=== PATIENT | female | born 2000 | race Caucasian/White ===

== ENCOUNTER 2020-01-29 09:29 | Outpatient (REF) | payer OTHER, SELFPAY ==
[2020-01-29 16:04] LABS: CT PCR NOT DETECTED (Not Detect.); NG PCR NOT DETECTED (Not Detect.)
== END 2020-01-29 09:30 | disposition home or self-care (01) ==
LOC: HO.LNP 09:29
PROVIDERS: PCP Pediatrics; Visit Provider Advanced Practice Midwife
DX: Z11.3 Encounter for screening for infections with a predominantly sexual mode of transmission (principal); Z20.2 Contact with and (suspected) exposure to infections with a predominantly sexual mode of transmission
CPT/HCPCS: 87491; 87591; 99213

== ENCOUNTER → 2020-03-03 13:53 | Outpatient (BNVA) | payer OTHER, SELFPAY | PROVIDERS: PCP Pediatrics; Visit Provider Advanced Practice Midwife | DX: Z30.42 Encounter for surveillance of injectable contraceptive (principal) | CPT/HCPCS: 96372; 99211; J1050 ==

== ENCOUNTER → 2020-06-05 08:48 | Outpatient (BNVA) | payer OTHER, SELFPAY | PROVIDERS: Visit Provider Advanced Practice Midwife | DX: Z30.42 Encounter for surveillance of injectable contraceptive (principal) | CPT/HCPCS: 96372; 99211 ==

== ENCOUNTER 2020-06-26 12:21 | Emergency (ER) | payer OTHER, SELFPAY ==
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
[2020-06-26 12:27] VITALS: BP 127/72; PULSE 86; RESP 18; TEMP 36.8; O2SAT 98; BMI 21.9
[2020-06-26] MEDS: Tetracaine HCl/PF 0.5% Oph Sol 4 ML DROPS 2 DROP EYE-LEFT (12:55)
[2020-06-26] MEDS: Fluorescein Sodium STRIP 1 STRIP EYE-LEFT (12:55)
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
[2020-06-26] MEDS: Erythromycin Base 0.5% Oph Oin 1 GM TUBE 1 CM EYE-LEFT (13:20)
[2020-06-26 13:23] LABS: Urine Pregnancy NEGATIVE (NEGATIVE)
[2020-06-26 13:24] LABS: UPreg QC Valid YES
== END 2020-06-26 14:33 | disposition home or self-care (01) ==
PROVIDERS: Physician Assistant; Emergency Provider Emergency Medicine Emergency Medical Services
DX: H21.02 Hyphema, left eye (principal); S05.02XA Injury of conjunctiva and corneal abrasion without foreign body, left eye, initial encounter; Y04.2XXA Assault by strike against or bumped into by another person, initial encounter; Y93.9 Activity, unspecified; Y92.9 Unspecified place or not applicable; Y99.9 Unspecified external cause status; F12.90 Cannabis use, unspecified, uncomplicated
CPT/HCPCS: 70486; 81025; 99284

== ENCOUNTER → 2020-08-28 10:51 | Outpatient (BNVA) | payer OTHER, SELFPAY | PROVIDERS: Visit Provider Advanced Practice Midwife | DX: Z30.42 Encounter for surveillance of injectable contraceptive (principal) | CPT/HCPCS: 96372; 99211; J1050 ==

== ENCOUNTER 2020-09-16 10:25 | Outpatient (REF) | payer OTHER, SELFPAY ==
[2020-09-16 12:37] LABS: Syphilis Screen Nonreactive (Nonreactive)
[2020-09-16 12:40] LABS: HIV AB/AG Nonreactive (Nonreactive); HIV Num 1 0.06 S/CO (0.00-0.99); ~HepC Num1 0.11 S/CO (0.00-0.79); ~Hepatitis C Antibody Nonreactive (Nonreactive)
[2020-09-16 13:10] LABS: HBsAGNum1 0.21 S/CO (0.00-0.99); Hepatitis B Surface Antigen Negative (Negative)
[2020-09-16 14:06] LABS: CT PCR DETECTED (Not Detect.); NG PCR NOT DETECTED (Not Detect.)
[2020-09-17 08:38] LABS: BV Int Neg Control Negative (Negative); BV Int Pos Control Positive (Positive)
== END 2020-09-16 10:26 | disposition home or self-care (01) ==
LOC: HO.LAB 10:25
PROVIDERS: Visit Provider Obstetrics & Gynecology
DX: A60.00 Herpesviral infection of urogenital system, unspecified (principal)
CPT/HCPCS: 36415; 86780; 86803; 87255; 87340; 87389; 87480; 87491; 87510; 87591; 87660; 99212

== ENCOUNTER 2020-09-30 10:20 | Outpatient (REF) | payer OTHER, SELFPAY ==
[2020-10-01 05:36] LABS: CT PCR NOT DETECTED (Not Detect.); NG PCR NOT DETECTED (Not Detect.)
== END 2020-09-30 10:21 | disposition home or self-care (01) ==
LOC: HO.LAB 10:20
PROVIDERS: Visit Provider Obstetrics & Gynecology
DX: Z11.3 Encounter for screening for infections with a predominantly sexual mode of transmission (principal); A60.00 Herpesviral infection of urogenital system, unspecified; Z20.2 Contact with and (suspected) exposure to infections with a predominantly sexual mode of transmission
CPT/HCPCS: 87491; 87591; 99212

== ENCOUNTER 2020-11-27 13:31 | Outpatient (REF) | payer OTHER, SELFPAY ==
[2020-11-28 13:10] LABS: CT PCR NOT DETECTED (Not Detect.); NG PCR NOT DETECTED (Not Detect.)
== END 2020-11-27 13:32 | disposition home or self-care (01) ==
LOC: HO.LAB 13:31
PROVIDERS: Visit Provider Advanced Practice Midwife
DX: Z01.419 Encounter for gynecological examination (general) (routine) without abnormal findings (principal); M62.89 Other specified disorders of muscle; K62.89 Other specified diseases of anus and rectum; Z20.2 Contact with and (suspected) exposure to infections with a predominantly sexual mode of transmission; Z30.42 Encounter for surveillance of injectable contraceptive; Z79.899 Other long term (current) drug therapy
CPT/HCPCS: 87491; 87591; 88142; 96372

== ENCOUNTER → 2021-02-19 11:00 | Outpatient (BNVA) | payer OTHER, SELFPAY | PROVIDERS: Visit Provider Advanced Practice Midwife | DX: Z30.42 Encounter for surveillance of injectable contraceptive (principal) | CPT/HCPCS: 96372; 99211 ==

== ENCOUNTER 2021-04-25 12:20 | Emergency (ER) | payer OTHER, SELFPAY ==
--- NOTE | ~2021-04-25 | XR_ITS ---
EXAMINATION: XR FINGER, LEFT CLINICAL INFORMATION: Swelling and pain of the left hand/thumb. COMPARISON: None TECHNIQUE: Three views of the left thumb. FINDINGS: Visualized portion of the distal radius and ulna demonstrate no fracture. Carpal rows are well aligned without carpal bone fracture. No metacarpal or phalangeal fracture. Specifically, there is no fracture of the thumb. There is no soft tissue swelling radiopaque foreign body of the thumb. XR/XR finger LT min 2V IMPRESSION: Unremarkable radiographs of the left thumb.
[2021-04-25 12:48] VITALS: BP 140/85; PULSE 74; RESP 18; TEMP 36.1; O2SAT 98; BMI 24.7
[2021-04-25] MEDS: Lidocaine HCl 2 % MPF 5 ML VIAL SUBCUT (13:34)
[2021-04-25] MEDS: Lidocaine 4 % Cream KIT 1 APPL TOPICAL (13:34)
[2021-04-25] MEDS: cephALEXin 500 MG CAPSULE PO (13:34)
[2021-04-25] MEDS: oxyCODONE HCl Immed Release 5 MG TABLET PO (13:35)
[2021-04-25] MEDS: Ibuprofen 800 MG TABLET PO (13:35)
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
[2021-04-25] MEDS: LORazepam 1 MG TABLET PO (14:56)
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
== END 2021-04-25 15:12 | disposition home or self-care (01) ==
PROVIDERS: Emergency Provider Internal Medicine
DX: L02.512 Cutaneous abscess of left hand (principal); F12.90 Cannabis use, unspecified, uncomplicated; Z79.899 Other long term (current) drug therapy
CPT/HCPCS: 10060; 73140; 99284

== ENCOUNTER → 2021-04-28 11:05 | Outpatient (BNVA) | payer OTHER, SELFPAY | PROVIDERS: Visit Provider Orthopaedic Surgery | DX: L03.012 Cellulitis of left finger (principal); Z98.890 Other specified postprocedural states | CPT/HCPCS: 99202 ==

== ENCOUNTER 2021-04-29 14:26 | Outpatient (REF) | payer OTHER, SELFPAY ==
[2021-04-29 16:01] LABS: Binax Internal Control QC Valid; Binax Now Covid-19 Ag Negative (Negative)
== END 2021-04-29 14:27 | disposition home or self-care (01) ==
LOC: HO.LAB 14:26
PROVIDERS: Visit Provider Internal Medicine
DX: Z20.822 Contact with and (suspected) exposure to COVID-19 (principal)
CPT/HCPCS: C9803

== ENCOUNTER → 2021-05-11 12:45 | Outpatient (BNVA) | payer OTHER, SELFPAY | PROVIDERS: Visit Provider Advanced Practice Midwife | DX: Z30.42 Encounter for surveillance of injectable contraceptive (principal) | CPT/HCPCS: 96372; 99211 ==

== ENCOUNTER → 2021-07-28 09:51 | Outpatient (BNVA) | payer OTHER, SELFPAY | PROVIDERS: Visit Provider Advanced Practice Midwife | DX: Z30.42 Encounter for surveillance of injectable contraceptive (principal) | CPT/HCPCS: 96372; 99211 ==

== ENCOUNTER 2021-09-15 02:15 | Emergency (ER) | payer OTHER, SELFPAY ==
[2021-09-15 02:21] VITALS: BP 145/83; PULSE 140; RESP 20; TEMP 37; O2SAT 98; BMI 24.7
--- NOTE | 2021-09-15 02:25 | ECG_ITS ---
Test Reason : CP,ETOH Blood Pressure : / mmHG Vent. Rate : 154 BPM Atrial Rate : 154 BPM P-R Int : 104 ms QRS Dur : 066 ms QT Int : 324 ms P-R-T Axes : 000 070 059 degrees QTc Int : 518 ms Sinus tachycardia with short NC Nonspecific ST abnormality Abnormal ECG No previous ECGs available Referred By: Generic ED Physician Electronically Signed By:MING CRYSTAL MD
--- NOTE | 2021-09-15 02:25 | PC.NURSE ---
Pt sister Latoya [phone]. Call when pt needs ride home.
[2021-09-15 02:33] LABS: Hematocrit 38.2 % (37.0-47.0); Hemoglobin 13.2 g/dl (12.0-16.0); Mean Corpuscular HGB Conc 34.6 g/dl (31.0-35.0); Mean Corpuscular Hemoglobin 30.3 pg (27.0-33.0); Mean Corpuscular Volume 87.6 fL (80.0-98.0); Platelet Count 314 X10*3/uL (160-400); Red Blood Count 4.36 X10*6/uL (4.20-5.50); Red Cell Distribution Width 12.5 % (11.0-16.0); White Blood Count 10.4 X10*3/uL (4.8-10.8)
[2021-09-15 02:51] LABS: Ethanol 106 mg/dL
[2021-09-15 02:55] LABS: Alanine Aminotransferase 19 U/L (0-31); Albumin Level 4.7 g/dL (3.5-5.0); Alkaline Phosphatase 87 U/L (39-117); Anion Gap 14 (12-20); Aspartate Amino Transferase 17 U/L (5-31); Bilirubin Total < 0.2 mg/dL (0.0-1.0); Blood Urea Nitrogen 12 mg/dL (9-16); Calcium 9.9 mg/dL (8.4-10.2); Carbon Dioxide 22 mmol/L (22-29); Chloride 107 mmol/L (96-108); Estimated Glomerular Filt Rate > 60; Glucose Random 114 mg/dL (60-115); Potassium 3.2 mmol/L (3.3-5.1); Sodium 140 mmol/L (135-145); Total Protein 8.4 g/dL (6.5-8.0)
[2021-09-15 03:00] LABS: Troponin-I High Sensitivity < 3.5 ng/L (<3.5-17.0)
--- NOTE | 2021-09-15 07:31 | ED.GENADULT ---
HPI - General Adult General Chief complaint: Anxiety Stated complaint: possible ETOH Time Seen by Provider: 09/15/21 07:31 Source: patient Mode of arrival: ambulatory Limitations: no limitations History of Present Illness HPI narrative: patient was feeling pressure in her chest last night. Patient had had this before. Patient states that she has anxiety, and is not sure why. Patient denies suicidal ideation, states that she is in a safe place, no one is hurting her. Patient denies . Patient now stating that her friends brother and she was stressed at the . Onset (ago): week(s) Location: chest Severity: mild Quality: aching Pain Consistency: intermittent Relieving factors: none Exacerbating factors: none Related Data Previous Rx's Medication Instructions Recorded erythromycin 5 mg/gram (0.5 %) eye 0.5 inch OPHTHALMIC (EYE) QID #3.5 06/26/20 ointment g azithromycin 500 mg tablet 1,000 mg PO ONCE #2 tab 09/16/20 valacyclovir 1 gram tablet 1,000 mg PO BID 10 Days #20 tab 09/16/20 metronidazole 500 mg tablet 500 mg PO BID 7 Days #14 tab 09/17/20 (Flagyl) medroxyprogesterone 150 mg/mL 150 mg IM Q12W 84 Days #1 ml 11/27/20 intramuscular syringe cephalexin 500 mg capsule 500 mg PO Q6H 10 Days #40 cap 04/25/21 doxycycline monohydrate 100 mg 100 mg PO BID 10 Days #20 cap 04/25/21 capsule ibuprofen 800 mg tablet 800 mg PO Q8H PRN #14 tab 04/25/21 oxycodone 5 mg tablet 5 mg PO Q6H PRN #14 tab 04/25/21 Allergies Allergy/AdvReac Type Severity Reaction Status Date / Time No Known Allergies Allergy Verified 04/28/21 11:25 [No Known Allergies*] Review of Systems Constitutional: Constitutional: Reports no additional constitutional complaints Eyes: Eyes: Reports no additional eye complaints ENT: Denies dizziness Cardiovascular: Cardiovascular: Reports no additional cardiovascular complaints Respiratory: Respiratory: Reports as per HPI Gastrointestinal: Gastrointestinal: Reports no additional gastrointestinal complaints Genitourinary: Genitourinary: Reports no additional female genitourinary complaints Musculoskeletal: Musculoskeletal: Reports no additional musculoskeletal complaints Integumentary/Breasts: Skin/Breast: Denies rash Neurologic: Reports system reviewed and no additional complaints, except as documented, Denies dizziness and Denies Sensory deficit (Neuro) Psychiatric: Psychiatric: Denies anxiety [facility] Past Medical History Medical History Chlamydia contact, treated Family History Family History Mother HTN (hypertension) Father Diabetes Sister HTN (hypertension) Maternal Aunt Breast cancer Social History Social History (Updated 04/28/21 @ 11:25 by JAYDEN Lombardo) Alcohol intake: current Alcohol intake frequency: holidays/special occasions only Patient Tobacco Use Status: Never used Tobacco Use of substances other than those prescribed or required for medical reasons: No Substance Use Type: Marijuana Advance Directives: No Advance Directives Information Provided: No Patient : No 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al status: unemployed 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: left 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 Physical Exam ED Vital Signs: Vital Signs - 24 hr 09/15/21 02:21 09/15/21 07:50 Temperature 98.6 F 98.3 F Pulse Rate 140 H 80 Respiratory Rate 20 16 Blood Pressure 145/83 H 141/77 H Pulse Oximetry 98 99 BMI result Body Mass Index 24.7 Const Other: slightly anxious General: healthy appearing Nutritional Appearance: average body habitus Orientation/consciousness: oriented to person and patient oriented x3 Limitations: no limitations HENMT Head: Yes normal to inspection Ears: external ears normal General nose exam: Normal external nose present Mouth: Normal oral and palatal mucosa present and oropharynx normal Throat: Yes posterior oropharynx normal Eyes General: appearance normal, both eyes and all related structures Neck Neck: Yes normal visual inspection Chest Chest palpation & inspection: normal inspection of the chest Resp Auscultation: clear to auscultation bilaterally Cardio Jugular venous distension: no JVD Rate: regular rate Rhythm: regular rhythm Heart sounds: S1 normal heart sound present and S2 normal heart sound present GI Inspection: Yes normal to inspection Palpation (GI): Soft to palpation, nontender and No hepatosplenomegaly present Auscultation: normal bowel sounds General: Yes no CVA tenderness Back/Spine/Pelvis Back: no CVA tenderness Skin General skin exam: no rashes or lesions noted Neuro General: oriented to person and patient oriented x3 Cranial nerves: Yes CN's II-XII intact bilaterally Motor exam (neuro): 5/5 motor strength present throughout Sensory Exam: No Sensory deficit (Neuro) Extrem General: Yes normal to inspection Psych Appearance: grossly normal Course Reevaluation(s) Reevaluation #1: EKG #[address] twave changes Time: 09:32 Reevaluation #2: patient under stress from friends brothers . She presented intoxicated, and smoked marijuana, she is resting comfortably now Time: 09:36 Medical Decision Making Lab Data Result diagrams: 09/15/21 02:27 09/15/21 02:27 Labs: Lab Results 09/15/21 09/15/21 09/15/21 Range/Units 02:27 02:27 02:27 WBC 10.4 (4.8-10.8) X10*3/uL RBC 4.36 (4.20-5.50) X10*6/uL Hgb 13.2 (12.0-16.0) g/dl Hct 38.2 (37.0-47.0) % MCV 87.6 (80.0-98.0) fL MCH 30.3 (27.0-33.0) pg MCHC 34.6 (31.0-35.0) g/dl RDW 12.5 (11.0-16.0) % Plt Count 314 (160-400) X10*3/uL MPV 11.0 (9.4-12.3) fL Absolute Nucleated RBC 0.000 (0.0-0.012) X10*3/uL Nucleated RBC % (auto) 0.0 (0.0-0.2) /100WBC Sodium 140 (135-145) mmol/L Potassium 3.2 L (3.3-5.1) mmol/L Chloride 107 (96-108) mmol/L Carbon Dioxide 22 (22-29) mmol/L Anion Gap 14 (12-20) BUN 12 (9-16) mg/dL Creatinine 0.92 (0.5-1.4) mg/dL Estim Creat Clear Calc 86.0 Estimated GFR > 60 Random Glucose 114 (60-115) mg/dL Calcium 9.9 (8.4-10.2) mg/dL Total Bilirubin < 0.2 (0.0-1.0) mg/dL AST 17 (5-31) U/L ALT 19 (0-31) U/L Alkaline Phosphatase 87 (39-117) U/L Troponin I High Sens (<3.5-17.0) ng/L Total Protein 8.4 H (6.5-8.0) g/dL Albumin 4.7 (3.5-5.0) g/dL Urine Color Urine Appearance Urine pH (5.0-8.0) Ur Specific [place] (1.005-1.025) Urine Protein (NEG-TRACE) MG/DL Urine Glucose (UA) (NEG) MG/DL Urine Ketones (NEG) MG/DL Urine Blood (NEG) Urine Nitrite (NEG) Ur Leukocyte Esterase (NEG) Urine RBC (0) /HPF Urine WBC (0-4) /HPF Ur Squamous Epith Cells /LPF Urine Bacteria /LPF Urine Opiates Screen (Not Detect) Urine Fentanyl Screen (Not Detect) Ur Barbiturates Screen (Not Detect) Ur Phencyclidine Scrn (Not Detect) Ur Amphetamines Screen (Not Detect) U Benzodiazepines Scrn (Not Detect) Urine Cocaine Screen (Not Detect) U Marijuana (THC) Screen (Not Detect) Ethyl Alcohol 106 mg/dL 09/15/21 09/15/21 09/15/21 Range/Units 02:27 08:05 08:05 WBC (4.8-10.8) X10*3/uL RBC (4.20-5.50) X10*6/uL Hgb (12.0-16.0) g/dl Hct (37.0-47.0) % MCV (80.0-98.0) fL MCH (27.0-33.0) pg MCHC (31.0-35.0) g/dl RDW (11.0-16.0) % Plt Count (160-400) X10*3/uL MPV (9.4-12.3) fL Absolute Nucleated RBC (0.0-0.012) X10*3/uL Nucleated RBC % (auto) (0.0-0.2) /100WBC Sodium (135-145) mmol/L Potassium (3.3-5.1) mmol/L Chloride (96-108) mmol/L Carbon Dioxide (22-29) mmol/L Anion Gap (12-20) BUN (9-16) mg/dL Creatinine (0.5-1.4) mg/dL Estim Creat Clear Calc Estimated GFR Random Glucose (60-115) mg/dL Calcium (8.4-10.2) mg/dL Total Bilirubin (0.0-1.0) mg/dL AST (5-31) U/L ALT (0-31) U/L Alkaline Phosphatase (39-117) U/L Troponin I High Sens < 3.5 (<3.5-17.0) ng/L Total Protein (6.5-8.0) g/dL Albumin (3.5-5.0) g/dL Urine Color YELLOW Urine Appearance HAZY Urine pH 7.0 (5.0-8.0) Ur Specific [place] 1.015 (1.005-1.025) Urine Protein NEG (NEG-TRACE) MG/DL Urine Glucose (UA) NEG (NEG) MG/DL Urine Ketones NEG (NEG) MG/DL Urine Blood NEG (NEG) Urine Nitrite NEG (NEG) Ur Leukocyte Esterase TRACE H (NEG) Urine RBC 0 (0) /HPF Urine WBC 5-9 H (0-4) /HPF Ur Squamous Epith Cells 2+ /LPF Urine Bacteria NONE /LPF Urine Opiates Screen Not Detected (Not Detect) Urine Fentanyl Screen Not Detected (Not Detect) Ur Barbiturates Screen Not Detected (Not Detect) Ur Phencyclidine Scrn Not Detected (Not Detect) Ur Amphetamines Screen Not Detected (Not Detect) U Benzodiazepines Scrn Not Detected (Not Detect) Urine Cocaine Screen Not Detected (Not Detect) U Marijuana (THC) Screen POSITIVE H (Not Detect) Ethyl Alcohol mg/dL ECG Data Attestation: I personally reviewed and interpreted this ECG as follows: Interpretation: sinus tachycardia rate of 153, no st or twave changes Discharge Plan Discharge Clinical Impression: Acute anxiety, Alcohol intoxication Patient Disposition: Home, Self-Care Instructions: Alcohol Intoxication (ED), Anxiety (ED) Prescriptions: No Action azithromycin 500 mg tablet 1,000 mg PO ONCE Qty: 2 0RF metronidazole [Flagyl] 500 mg tablet 500 mg PO BID 7 Days Qty: 14 0RF Rx Instructions: Take with food, Avoid alcohol and vinegar products erythromycin 5 mg/gram (0.5 %) ointment 0.5 inch ophthalmic (eye) QID Qty: 3.5 0RF Rx Instructions: apply to inner left lower eyelid cephalexin 500 mg capsule 500 mg PO Q6H 10 Days Qty: 40 0RF doxycycline monohydrate 100 mg capsule 100 mg PO BID 10 Days Qty: 20 0RF ibuprofen 800 mg tablet 800 mg PO Q8H PRN (Reason: pain) Qty: 14 0RF oxycodone 5 mg tablet 5 mg PO Q6H PRN (Reason: pain) Qty: 14 0RF valacyclovir 1 gram tablet 1,000 mg PO BID 10 Days Qty: 20 0RF medroxyprogesterone [Depo-Provera] 150 mg/mL syringe 150 mg IM ONCE Qty: 1 0RF medroxyprogesterone 150 mg/mL syringe 150 mg IM Q12W 84 Days Qty: 1 3RF Referrals: Physician,Unknown J [Primary Care Provider] - 1 week
--- NOTE | 2021-09-15 07:36 | ECG_ITS ---
Test Reason : ANXIETY Blood Pressure : / mmHG Vent. Rate : 070 BPM Atrial Rate : 070 BPM P-R Int : 152 ms QRS Dur : 088 ms QT Int : 384 ms P-R-T Axes : 027 073 029 degrees QTc Int : 414 ms Normal sinus rhythm Normal ECG When compared with ECG of 15-SEP-2021 02:15, Vent. rate has decreased BY [address] no longer depressed in Inferior leads Non-specific change in ST segment in Anterior leads Referred By: Lan Pierce Electronically Signed By:MING CRYSTAL MD
[2021-09-15 07:50] VITALS: BP 141/77; PULSE 80; RESP 16; TEMP 36.8; O2SAT 99
[2021-09-15 08:25] LABS: Appearance Urine HAZY; Color Urine YELLOW; Glucose Urine UA NEG (NEG); Leukocyte Esterase Urine TRACE (NEG); Nitrite Urine NEG (NEG); Specific Gravity - Urine 1.015 (1.005-1.025); Urine Blood NEG (NEG); Urine Ketones NEG (NEG); Urine Protein NEG (NEG-TRACE)
[2021-09-15 08:27] LABS: RBC Urine 0 /HPF (0); Squamous Epithelial Cell Urine 2+ /LPF
[2021-09-15 08:43] LABS: Amphetamine Screen Urine Not Detected (Not Detect); Barbiturates, Urine Not Detected (Not Detect); Benzodiazepines Screen Urine Not Detected (Not Detect); Cannabinoid Screen Urine POSITIVE (Not Detect); Cocaine Screen Urine Not Detected (Not Detect); Fentanyl, urine Not Detected (Not Detect); Opiate Screen Urine Not Detected (Not Detect); Phencyclidine Screen Urine Not Detected (Not Detect)
[2021-09-15 10:01] VITALS: BP 138/70; PULSE 64; RESP 16; O2SAT 100
== END 2021-09-15 10:14 | disposition home or self-care (01) ==
PROVIDERS: Emergency Provider Emergency Medicine
DX: F41.9 Anxiety disorder, unspecified (principal); F10.129 Alcohol abuse with intoxication, unspecified; Y90.9 Presence of alcohol in blood, level not specified
CPT/HCPCS: 36415; 80053; 80307; 81001; 82077; 84484; 85027; 87086; 93005; 99284

== ENCOUNTER → 2021-10-21 10:37 | Outpatient (BNVA) | payer OTHER, SELFPAY | PROVIDERS: Visit Provider Advanced Practice Midwife | DX: Z30.42 Encounter for surveillance of injectable contraceptive (principal) | CPT/HCPCS: 96372; 99211 ==

== ENCOUNTER 2021-12-20 20:27 | Emergency (ER) | payer OTHER, SELFPAY ==
--- NOTE | ~2021-12-20 | CT_ITS ---
EXAMINATION: CT HEAD WITHOUT CONTRAST CLINICAL INFORMATION: Head trauma with headache and loss of consciousness COMPARISON: None TECHNIQUE: Imaging was performed from the skull base to vertex without intravenous administration of contrast. This CT examination was performed using dose optimization techniques as appropriate, variously including the following: *Automated exposure control *Adjustment of mA and/or kV according to patient size (this includes techniques or standardized protocols for targeted exams where dose is matched to indication/reason for exam; i.e. extremities or head) *Use of iterative reconstruction technique Total exam dose length product: 609 mGy-cm FINDINGS: No intra or extra-axial fluid collection, hemorrhage, or mass. No ventriculomegaly. No midline shift or herniation. Basal cisterns are patent. Humphreys-white matter differentiation is maintained. No territorial encephalomalacia. No significant volume loss. There is no abnormal attenuation within the brain parenchyma. No calvarial fracture or soft tissue abnormality. Mild mucosal thickening of left ethmoid air cells. Mastoid air cells normally aerated. CT/CT head/brain wo IV con IMPRESSION: 1. No acute intracranial pathology.
[2021-12-20 20:29] VITALS: BP 142/73; PULSE 71; RESP 18; TEMP 37.1; O2SAT 97; BMI 23.0
--- NOTE | 2021-12-20 20:41 | ED_ITS ---
HPI - Fall General Chief Complaint: Fall Stated Complaint: head pain, blurry vision Time Seen by Provider: 12/20/21 20:36 Source: patient Mode of arrival: ambulatory Limitations: no limitations History of Present Illness HPI Narrative: 21yo female with previous concussion 2020 presents with reports of generalized CARRILLO, blurry vision bilaterally with photophobia after a head injury the evening of 12/18/12/19. Patient reports slip and fall in bathroom with head strike. Patient believe she may have had loss of consciousness. Since then she is having symptoms of headache, bilateral blurry vision and photophobia. No nausea, vomiting, dizziness, neck pain. No AC use. Related Data Previous Rx's Medication Instructions Recorded erythromycin 5 mg/gram (0.5 %) eye 0.5 inch ophthalmic (eye) QID #3.5 06/26/20 ointment grams azithromycin 500 mg tablet 1,000 mg PO ONCE #2 tabs 09/16/20 valacyclovir 1 gram tablet 1,000 mg PO BID 10 days #20 tabs 09/16/20 metronidazole 500 mg tablet 500 mg PO BID 7 days #14 tabs 09/17/20 (Flagyl) medroxyprogesterone 150 mg/mL 150 mg IM Q12W 84 days #1 mL 11/27/20 intramuscular syringe cephalexin 500 mg capsule 500 mg PO Q6H 10 days #40 caps 04/25/21 doxycycline monohydrate 100 mg 100 mg PO BID 10 days #20 caps 04/25/21 capsule ibuprofen 800 mg tablet 800 mg PO Q8H PRN pain #14 tabs 04/25/21 oxycodone 5 mg tablet 5 mg PO Q6H PRN pain #14 tabs 04/25/21 medroxyprogesterone 150 mg/mL 150 mg IM [id number] 3 months #1 mL 10/21/21 intramuscular suspension (Depo-Provera) Allergies Allergy/AdvReac Type Severity Reaction Status Date / Time No Known Allergies Allergy Verified 12/20/21 20:29 [No Known Allergies*] Review of Systems Review of Systems: Yes all other systems are reviewed and are negative Constitutional: Constitutional: Reports no additional constitutional complaints, Denies body ache(s), Denies chills, Denies fever(s), Reports headache(s) and Denies weakness Eyes: Eyes: Reports no additional eye complaints, Reports blurry vision, Denies change in vision and Reports photophobia ENT: Reports system reviewed and no additional complaints, except as documented, Denies dizziness, Reports headache(s), Denies nasal congestion, Denies nasal discharge and Denies neck pain Cardiovascular: Cardiovascular: Reports no additional cardiovascular complaints, Denies chest pain, Denies leg edema and Denies dyspnea Respiratory: Respiratory: Reports no additional respiratory complaints, Denies cough and Denies dyspnea Gastrointestinal: Gastrointestinal: Reports no additional gastrointestinal complaints, Denies abdominal pain, Denies diarrhea, Denies nausea and Denies vomiting Genitourinary: Genitourinary: Reports no additional female genitourinary complaints and Denies urinary incontinence Musculoskeletal: Musculoskeletal: Reports no additional musculoskeletal complaints, Denies back pain, Denies arthralgias, Denies joint swelling, Denies neck pain, Denies numbness and Denies tingling Integumentary/Breasts: Skin/Breast: Reports system reviewed and no additional complaints, except as docu and Denies rash Neurologic: Reports system reviewed and no additional complaints, except as documented, Denies Abnormal speech present, Denies dizziness, Reports headache(s), Denies numbness, Denies tingling and Denies weakness PMFSH Past Medical History Attestation statement: The following information was validated with the patient. 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: left hand Physical Exam Vital Signs: Vital Signs: Last Vital Signs Temp 98.8 F 12/20/21 20:29 Pulse 71 12/20/21 20:29 Resp 18 12/20/21 20:29 BP 142/73 H 12/20/21 20:29 Pulse Ox 97 09/05/22 20:29 BMI result Body Mass Index 23.0 Const: General: cooperative, healthy appearing, comfortable and no acute distress Orientation/consciousness: patient oriented x3 Limitations: no limitations HEENT: Head: Yes normal to inspection, No Gomez's sign and No raccoon eyes Ears: hearing grossly normal bilaterally and TM's normal bilaterally General nose exam: Normal external nose present Face and sinus: Yes normal facial exam Mouth: Normal oral and palatal mucosa present Throat: Yes posterior oropharynx normal Eyes: General: appearance normal, both eyes and all related structures Visual Caba: normal visual caba by confrontation Alignment and Position: alignment normal Periorbital: periorbital findings normal Eyelids: Yes eyelids normal Conjunctivae: conjunctivae normal Sclerae: sclerae normal Corneas: corneas normal Pupils: Equal, round and reactive pupils present EOM: EOMs intact bilaterally Direct Ophthalmoscopy: normal light reflex, fundi normal bilaterally, anterior chamber normal and photophobia Neck: Other: no midline tenderness, step offs or deformities Neck: Yes normal visual inspection, Yes full ROM, Yes no lymphadenopathy and Yes no meningeal signs Chest: Chest palpation & inspection: normal inspection of the chest Resp: Effort & Inspection: normal respiratory effort Auscultation: clear to auscultation bilaterally Cardio: Rate: regular rate Rhythm: regular rhythm Peripheral pulses: Peripheral pulses 2+ throughout GI: Inspection: Yes normal to inspection Palpation (GI): Soft to palpation and nontender Auscultation: normal bowel sounds Back/Spine/Pelvis: Thoracic/Lumbar Spine: thoracic and lumbar spine normal to inspection Skin: General skin exam: no rashes or lesions noted Neuro: General: patient oriented x3, no meningeal signs, no focal motor deficits and normal sensation to monofilament Cranial nerves: Yes CN's II-XII intact bilaterally, Yes Equal, round and reactive pupils present, Yes Bilaterally intact EOM present, Yes Nystagmus not present, Yes Normal facial strength present and Yes Midline tongue present Cognition (Neuro): normal cognition Speech: No Abnormal speech present Gait exam (Neuro): Normal gait present Motor exam (neuro): 5/5 motor strength present throughout Sensory Exam: Normal double simultaneous stimulation for sensation Extrem: General: Yes normal to inspection Course Course Course Narrative: CT head shows no acute finding. Likely concussion. Reviewed head injury care with patient. Reviewed worrisome signs and symptoms of when to return to the emergency department. Comfortable discharge home. MDM - Fall [facility] Narrative Medical decision making narrative: 21 yo female here with reports of CARRILLO, blurry vision bilaterally with photophobia after head injury with LOC 2 days ago. Normal neuro exam. Will obtain CT head to r/o ICH Medical Records Attestation: I reviewed the patient's medical records. Lab Data Attestation: I reviewed the patient's lab results. Labs: Lab Results 12/20/21 Range/Units 20:53 Urine Test NEGATIVE (NEGATIVE) Imaging Data CT scan - head: Attestation: I personally reviewed and interpreted this imaging study as follows: Radiologist's impression: [address] [address] [address] Scan Report Signed Patient: Juju Pagan MR#: [id number] : 2000 Acct:[id number] Age/Sex: 21 / F ADM Date: 12/20/21 Loc: HO.ED Attending Dr: Ordering Physician: Alondra Aviles NP Date of Service: 12/20/21 Procedure(s): CT head/brain wo IV con Accession Number(s): [id number] cc: Alondra Aviles NP~ EXAMINATION: CT HEAD WITHOUT CONTRAST CLINICAL INFORMATION: Head trauma with headache and loss of consciousness? COMPARISON: None TECHNIQUE: Imaging was performed from the skull base to vertex without intravenous administration of contrast. This CT examination was performed using dose optimization techniques as appropriate, variously including the following: *Automated exposure control *Adjustment of mA and/or kV according to patient size (this includes techniques or standardized protocols for targeted exams where dose is matched to indication/reason for exam; i.e. extremities or head) *Use of iterative reconstruction technique Total exam dose length product: 609 mGy-cm FINDINGS: No intra or extra-axial fluid collection, hemorrhage, or mass. No ventriculomegaly. No midline shift or herniation. Basal cisterns are patent. Humphreys-white matter differentiation is maintained. No territorial encephalomalacia. ?No significant volume loss. There is no abnormal attenuation within the brain parenchyma. No calvarial fracture or soft tissue abnormality. ?Mild mucosal thickening of left ethmoid air cells. Mastoid air cells normally aerated. CT/CT head/brain wo IV con IMPRESSION: 1. No acute intracranial pathology. ? Discharge Plan Discharge Clinical Impression: Concussion with loss of consciousness Patient Disposition: Home, Self-Care Instructions: Concussion (ED) Additional Instructions: CT scan shows no signs of bleeding Limit screen time Get plenty of rest Prescriptions: No Action azithromycin 500 mg tablet 1,000 mg PO ONCE Qty: 2 0RF metronidazole [Flagyl] 500 mg tablet 500 mg PO BID 7 Days Qty: 14 0RF Rx Instructions: Take with food, Avoid alcohol and vinegar products erythromycin 5 mg/gram (0.5 %) ointment 0.5 inch ophthalmic (eye) QID Qty: 3.5 0RF Rx Instructions: apply to inner left lower eyelid cephalexin 500 mg capsule 500 mg PO Q6H 10 Days Qty: 40 0RF doxycycline monohydrate 100 mg capsule 100 mg PO BID 10 Days Qty: 20 0RF ibuprofen 800 mg tablet 800 mg PO Q8H PRN (Reason: pain) Qty: 14 0RF oxycodone 5 mg tablet 5 mg PO Q6H PRN (Reason: pain) Qty: 14 0RF valacyclovir 1 gram tablet 1,000 mg PO BID 10 Days Qty: 20 0RF medroxyprogesterone [Depo-Provera] 150 mg/mL syringe 150 mg IM ONCE Qty: 1 0RF medroxyprogesterone 150 mg/mL syringe 150 mg IM Q12W 84 Days Qty: 1 3RF medroxyprogesterone [Depo-Provera] 150 mg/mL suspension 150 mg IM [id number] 90 Days Qty: 1 0RF Referrals: Physician,None [Primary Care Provider] - Stand Alone Forms: Work/School Release Interventions: ED Discharge Assessment Last Done: 12/20/21 22:06 Discharge Date/Time: 12/20/21 22:07 Print Language: Paraguayan
[2021-12-20 21:12] LABS: UPreg QC Valid YES; Urine Pregnancy NEGATIVE (NEGATIVE)
== END 2021-12-20 22:07 | disposition home or self-care (01) ==
PROVIDERS: Nurse Practitioner Family; Emergency Provider Emergency Medicine
DX: S06.0X1A Concussion with loss of consciousness of 30 minutes or less, initial encounter (principal); W01.198A Fall on same level from slipping, tripping and stumbling with subsequent striking against other object, initial encounter; Y93.89 Activity, other specified; Y92.031 Bathroom in apartment as the place of occurrence of the external cause; Y99.9 Unspecified external cause status
CPT/HCPCS: 70450; 81025; 99282; 99283; 99284

== ENCOUNTER → 2022-01-11 12:59 | Outpatient (BNVA) | payer OTHER, SELFPAY | PROVIDERS: Visit Provider Advanced Practice Midwife | DX: Z30.42 Encounter for surveillance of injectable contraceptive (principal) | CPT/HCPCS: 96372; 99211 ==

== ENCOUNTER 2022-01-30 17:39 | Emergency (ER) | payer OTHER, SELFPAY ==
[2022-01-30 18:21] VITALS: BP 145/83; PULSE 86; RESP 16; TEMP 36.6; O2SAT 99; BMI 23.0
--- NOTE | 2022-01-30 20:19 | ED_ITS ---
HPI - Dental/Oral General Chief complaint: General Medical Stated complaint: swollen cheek, difficulty swallowing Time Seen by Provider: 01/30/22 20:16 Source: patient Mode of arrival: ambulatory History of Present Illness HPI Narrative: Patient with dental caries seen dentist 2 weeks ago advised extraction of the tooth. Patient plan to follow with dentist comes here for 2 days of swelling and increased pain no fever no chills Related Data Previous Rx's Medication Instructions Recorded erythromycin 5 mg/gram (0.5 %) eye 0.5 inch ophthalmic (eye) QID #3.5 06/26/20 ointment grams azithromycin 500 mg tablet 1,000 mg PO ONCE #2 tabs 09/16/20 valacyclovir 1 gram tablet 1,000 mg PO BID 10 days #20 tabs 09/16/20 metronidazole 500 mg tablet 500 mg PO BID 7 days #14 tabs 09/17/20 (Flagyl) medroxyprogesterone 150 mg/mL 150 mg IM Q12W 84 days #1 mL 11/27/20 intramuscular syringe cephalexin 500 mg capsule 500 mg PO Q6H 10 days #40 caps 04/25/21 doxycycline monohydrate 100 mg 100 mg PO BID 10 days #20 caps 04/25/21 capsule ibuprofen 800 mg tablet 800 mg PO Q8H PRN pain #14 tabs 04/25/21 oxycodone 5 mg tablet 5 mg PO Q6H PRN pain #14 tabs 04/25/21 medroxyprogesterone 150 mg/mL 150 mg IM Q12W 12 weeks #1 mL 01/10/22 intramuscular suspension amoxicillin 875 mg-potassium 1 tab PO BID #20 tabs 01/30/22 clavulanate 125 mg tablet oxycodone-acetaminophen 5 mg-325 1 tab PO Q6H PRN pain #20 tabs 01/30/22 mg tablet (Percocet) Allergies Allergy/AdvReac Type Severity Reaction Status Date / Time No Known Allergies Allergy Verified 12/20/21 20:29 [No Known Allergies*] Review of Systems Review of Systems: Yes all other systems are reviewed and are negative [facility] Past Medical History Medical History Chlamydia contact, treated Family History Family History Mother HTN (hypertension) Father Diabetes Sister HTN (hypertension) Maternal Aunt Breast cancer Social History Social History Alcohol intake: current Alcohol intake frequency: holidays/special occasions only Patient Tobacco Use Status: Never used Tobacco Substance Use Type: Marijuana Advance Directives: No Advance Directives Information Provided: No 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al status: unemployed 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: left hand Physical Exam Vital Signs: Vital Signs: Last Vital Signs Temp 97.8 F 01/30/22 18:21 Pulse 86 01/30/22 18:21 Resp 16 01/30/22 18:21 BP 145/83 H 01/30/22 18:21 Pulse Ox 99 01/30/22 18:21 O2 Del Method 01/30/22 18:21 BMI result Body Mass Index 23.0 Appearance: Alert. Oriented X3. No acute distress. HEENT: Pharynx normal. Oral Mucosa moist tender left lower 2nd molar with slight swelling of the gum no abscess felt Neck: Normal inspection. Neck supple. CVS: Normal heart rate and rhythm. Pulses normal. Respiratory: No respiratory distress. Equal air entry bilateral, no wheezing/rales/rhonchi Abdomen: Soft and nontender. Skin: Skin warm and dry. Normal skin color. Extremities: No lower extremity edema. Neuro: Oriented X 3. No motor deficit. MDM - Dental/Oral MDM Narrative Medical decision making narrative: Patient with dental caries with slight cellulitis possible early abscess. Had a follow-up and see a dentist. Will give antibiotic Augmentin Discharge Plan Discharge Clinical Impression: Abscess, dental Patient Disposition: Home, Self-Care Instructions: Dental Abscess (ED) Additional Instructions: Take antibiotic as prescribed Follow-up with your dentist for further management Prescriptions: New oxycodone-acetaminophen [Percocet] 5-325 mg tablet 1 tab PO Q6H PRN (Reason: pain) Qty: 20 0RF Rx Instructions: Partial Fill upon patient request. amoxicillin-pot clavulanate 875-125 mg tablet 1 tab PO BID Qty: 20 0RF No Action azithromycin 500 mg tablet 1,000 mg PO ONCE Qty: 2 0RF metronidazole [Flagyl] 500 mg tablet 500 mg PO BID 7 Days Qty: 14 0RF Rx Instructions: Take with food, Avoid alcohol and vinegar products medroxyprogesterone 150 mg/mL suspension 150 mg IM Q12W 84 Days Qty: 1 0RF erythromycin 5 mg/gram (0.5 %) ointment 0.5 inch ophthalmic (eye) QID Qty: 3.5 0RF Rx Instructions: apply to inner left lower eyelid cephalexin 500 mg capsule 500 mg PO Q6H 10 Days Qty: 40 0RF doxycycline monohydrate 100 mg capsule 100 mg PO BID 10 Days Qty: 20 0RF ibuprofen 800 mg tablet 800 mg PO Q8H PRN (Reason: pain) Qty: 14 0RF oxycodone 5 mg tablet 5 mg PO Q6H PRN (Reason: pain) Qty: 14 0RF valacyclovir 1 gram tablet 1,000 mg PO BID 10 Days Qty: 20 0RF medroxyprogesterone [Depo-Provera] 150 mg/mL syringe 150 mg IM ONCE Qty: 1 0RF medroxyprogesterone 150 mg/mL syringe 150 mg IM Q12W 84 Days Qty: 1 3RF
[2022-01-30] MEDS: Amoxicillin/Potassium Clav 875 MG TABLET PO (20:47)
[2022-01-30] MEDS: Ibuprofen 600 MG TABLET PO (20:47)
== END 2022-01-30 20:51 | disposition home or self-care (01) ==
PROVIDERS: Emergency Provider Internal Medicine
DX: K04.7 Periapical abscess without sinus (principal); R13.10 Dysphagia, unspecified; Z79.899 Other long term (current) drug therapy
CPT/HCPCS: 99283

== ENCOUNTER 2022-04-07 15:10 | Outpatient (REF) | payer OTHER, SELFPAY ==
[2022-04-09 04:36] LABS: CT PCR NOT DETECTED (Not Detect.); NG PCR NOT DETECTED (Not Detect.)
[2022-04-09 11:26] LABS: BV Int Neg Control Negative (Negative); BV Int Pos Control Positive (Positive)
== END 2022-04-07 15:11 | disposition home or self-care (01) ==
LOC: HO.LNP 15:10
PROVIDERS: Visit Provider Advanced Practice Midwife
DX: Z11.3 Encounter for screening for infections with a predominantly sexual mode of transmission (principal); B37.31 Acute candidiasis of vulva and vagina; Z86.2 Personal history of diseases of the blood and blood-forming organs and certain disorders involving the immune mechanism
CPT/HCPCS: 87480; 87491; 87510; 87591; 87660

== ENCOUNTER → 2022-05-13 08:42 | Outpatient (BNVA) | payer OTHER, SELFPAY | PROVIDERS: Visit Provider Advanced Practice Midwife | DX: Z30.42 Encounter for surveillance of injectable contraceptive (principal) | CPT/HCPCS: 99212 ==

== ENCOUNTER → 2022-05-17 15:11 | Outpatient (BNVA) | payer OTHER, SELFPAY | PROVIDERS: Visit Provider Advanced Practice Midwife | DX: Z30.42 Encounter for surveillance of injectable contraceptive (principal) | CPT/HCPCS: 96372; 99211 ==

== ENCOUNTER → 2022-08-09 11:13 | Outpatient (BNVA) | payer OTHER, SELFPAY | PROVIDERS: Visit Provider Advanced Practice Midwife | DX: Z30.42 Encounter for surveillance of injectable contraceptive (principal) | CPT/HCPCS: 96372; 99211 ==

== ENCOUNTER 2022-11-02 12:53 | Outpatient (AMB) | payer OTHER, SELFPAY ==
--- NOTE | 2022-11-02 13:06 | AM.OFFVISNUR ---
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 Pt reports of a small muscle twitch right deltoid where her last injection was given. Pt reports the twitch comes and goes and is not painful. Advised pt she can try some moist heat to the area. Call back to office if symptom does not resolve. Pt verbalizes understanding and agrees with plan. No further questions. Pt tolerated injection well today. Office Procedures Depo Questionnaire If YES to any of the following questions, please consult a provider. Date of last injection: 08/09/22 Date of last gynecology exam: 04/07/22 Menstrual pattern since last injection has been: Not Applicable Irregular bleeding?: No Breast lumps or other breast changes?: No Changes in weight or appetite?: No Depression or changes in mood?: No Abnormal hair growth or loss?: No Skin problems (rash, acne, discoloration)?: No Pain at the injection site?: No Headaches?: No Nervousness?: No Abdominal pain or cramping?: No Dizziness or nausea?: No Fatigue or weakness?: No Decrease in sexual drive?: No Chest pain or shortness of breath?: No Swelling in arms or legs?: No Any other problems or concerns?: Pt reports slight muscle twitch right deltoid from injection 08/09/22 Form completed by?: Lia Segundo RN Office Meds Depo-Provera Performing Provider: Phyllis Guzman CNM Administered by: Lia Segundo on 11/02/22 13:12 Dose Route Admin Location Lot Number Expiration Date NDC Substance Addiction Coordinator 150 mg IM left deltoid [id number] 01/14/25 48271-492-56 [facility] Coding Level of Care Code Established Pt Est Pt Level 1 (33388) Patient Type Established History Problem Focused Medical Decision Making Straight Forward Diagnoses Time Spent (min) 12 Assessment & Plan Assessment & Plan Plan Pt will return for next Depo provera injection in 12 weeks. Orders: Orders AMB Medroxyprogesterone Injection Patient Supplied Today Z30.42 - Encounter for surveillance of injectable contraceptive Patient Instructions: Moist heat to muscle (right deltoid). Call back if no resolution.
[2022-11-02 13:08] VITALS: BMI 27.2
== END 2022-11-02 13:05 | disposition home or self-care (01) ==
PROVIDERS: Visit Provider Advanced Practice Midwife
DX: Z30.42 Encounter for surveillance of injectable contraceptive (principal)
CPT/HCPCS: J1050

== ENCOUNTER → 2022-11-02 12:53 | Outpatient (BNVA) | payer OTHER, SELFPAY | PROVIDERS: Visit Provider Advanced Practice Midwife | DX: Z30.42 Encounter for surveillance of injectable contraceptive (principal) | CPT/HCPCS: 96372; 99211 ==

== ENCOUNTER 2023-03-08 10:40 | Outpatient (REF) | payer OTHER, SELFPAY ==
[2023-03-08 15:29] LABS: CT PCR DETECTED (Not Detect.); NG PCR NOT DETECTED (Not Detect.)
[2023-03-09 12:00] LABS: BV Int Neg Control Negative (Negative); BV Int Pos Control Positive (Positive)
== END 2023-03-08 10:41 | disposition home or self-care (01) ==
LOC: HO.LNP 10:40
PROVIDERS: Visit Provider Advanced Practice Midwife
DX: Z30.42 Encounter for surveillance of injectable contraceptive (principal)
CPT/HCPCS: 0353U; 87480; 87510; 87660; 99212

== ENCOUNTER 2023-03-08 10:40 | Outpatient (AMB) | payer OTHER, SELFPAY ==
--- NOTE | 2023-03-08 10:42 | A.OFFVIS_ITS ---
Intake Vital Signs 03/08/23 10:44 Height 5 ft 3 in Weight 147 lb BMI 26.0 Intake Visit Reasons: Re start DEPO/STD Testing Intake Note: would like to start depo again and would like STD testing Boarder Hand Required: No Information Interpreted: non-clinical & clinical Small Piece Cutter: Small Piece Cutter Present (Chelsea) Allergies No Known Allergies [No Known Allergies*] Allergy (Verified 03/08/23 10:46) Medication List - Last Reconciled 03/08/23 by Leena Yuen CNM medroxyprogesterone 150 mg IM [id number] 3 months Is last menstrual period known: Yes Last menstrual period: 02/24/23 Post menopausal: No HPI Re start DEPO/STD Testing HPI Details Patient is here because she stop the Depo for couple of weeks because she wanted to see if it would change how she was eating and sure enough she wou ld find that she was snacking last between meals but she has decided she wants to get back on the Depo regardless because of protection from . She is not interested in any other method at this time she started on the Depo right after having her daughter when her daughter was born 4 years ago at [facility] where she was transferred from [facility] for preeclampsia. She had unprotected sex a couple of weeks ago and wants to get checked for STDs normally she uses condoms. She says her last period which was her real. After being late for the Depo was February 24 she still has some spotting. She knows it isn't great to stay on the Depo for very long period of time. She wants to get full testing for STIs. [facility] Surgical History H/O tooth extraction Family History Mother HTN (hypertension) Father Diabetes Sister HTN (hypertension) Maternal Aunt Breast cancer Alcohol intake: current Alcohol intake frequency: holidays/special occasions only Patient Tobacco Use Status: Never used Tobacco Substance Use Type: Marijuana 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al status: unemployed 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: left hand Female Reproductive History Menstrual Age of Menarche: 12 Date of last menstrual period: 02/24/23 control method: progesterone injection Total pregnancies: 2 Full term: 1 Number of Living Children: 1 Ab spontaneous: 1 Date of last pap smear: 11/30/20 (negative) Physical Exam Vital Signs: BMI result Body Mass Index 26.0 Other: Vaginal discharge is mucousy with some pink staining and bubbles. External Female Exam: normal external appearance and normal appearance of the urethra Speculum Exam - Vagina: normal appearance of the vagina and normal vaginal discharge Speculum Exam - Cervix: normal appearance of the cervix and Cervical os closed Assessment & Plan Assessment & Plan (1) Screen for sexually transmitted diseases: Code(s): Z11.3 - Encounter for screening for infections with a predominantly sexual mode of transmission (2) Depo-Provera contraceptive status: Comment: Depo last given 01/11/2022. was due 04/05/2022,... Code(s): Z30.42 - Encounter for surveillance of injectable contraceptive Plan Reviewed that she really should probably wait till her next menses in order to restart she thought that her last Depo was in October. She wants to do this in any case just to be really sure. Reviewed being careful about what she eats so she does not gain too much weight when she gets back on the Depo I have ordered full STI testing and she can get information about the portal at the front she thought she had it but she seems not to have it on her phone anymore. If she does not get on the portal she can find out her results when she comes to get her Depo which should be with her next. I am sending a new prescription to her pharmacy of choice which now is the [facility]. Orders: Orders Bacterial Vaginosis Panel Today Z11.3 - Encounter for screening for infections with a predominantly sexual mode of transmission CT NG by PCR Today Z11.3 - Encounter for screening for infections with a predominantly sexual mode of transmission Hepatitis C Antibody Today Z11.3 - Encounter for screening for infections with a predominantly sexual mode of transmission, Z30.42 - Encounter for surveillance of injectable contraceptive Syphilis Screen Today Z11.3 - Encounter for screening for infections with a predominantly sexual mode of transmission, Z30.42 - Encounter for surveillance of injectable contraceptive Hepatitis B Surface Antigen Today Z11.3 - Encounter for screening for infections with a predominantly sexual mode of transmission, Z30.42 - Encounter for surveillance of injectable contraceptive HIV Ab/Ag Today Z11.3 - Encounter for screening for infections with a predominantly sexual mode of transmission, Z30.42 - Encounter for surveillance of injectable contraceptive Medications: Changed From medroxyprogesterone 150 mg IM [id number] 3 months 1 mL 0RF To medroxyprogesterone Restart the Depo with next menses 150 mg IM Q12W 12 weeks 1 mL 5RF Coding Level of Care Code Est Pt Level 3 (94624) Diagnoses Screen for sexually transmitted diseases Z11.3 Depo-Provera contraceptive status Z30.42
[2023-03-08 10:44] VITALS: BMI 26.0
== END 2023-03-08 11:27 | disposition home or self-care (01) ==
LOC: HO.HWS 10:40
PROVIDERS: Visit Provider Advanced Practice Midwife
DX: Z11.3 Encounter for screening for infections with a predominantly sexual mode of transmission (principal)
CPT/HCPCS: 99214

== ENCOUNTER 2023-06-12 10:17 | Outpatient (AMB) | payer OTHER, SELFPAY ==
[2023-06-12 10:37] VITALS: BP 104/66; BMI 22.8
--- NOTE | 2023-06-12 10:37 | A.OFFVIS_ITS ---
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 Intake Note: having a lot of lower abdominal pain has been having discharge Tile Layer Drainage Required: No Information Interpreted: non-clinical & clinical Burr Machine Operator: Burr Machine Operator Present (Chelsea) Allergies No Known Allergies [No Known Allergies*] Allergy (Verified 06/12/23 10:40) Medication List - Last Reconciled 06/12/23 by Leena Yuen CNM No Known Home Meds Is last menstrual period known: Yes Last menstrual period: 05/30/23 Post menopausal: No HPI 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 She has not masking she did not do any testing. She is ?not really? sexually active when I pressed her on when she last had sex it was about 3 weeks ago. She says her last period was about a couple weeks ago but she does not really remember the date she made up a date. She does not want to be it would be a bad thing. But she does not want anything in her arm or uterus for control. She says she was on Depo since her daughter was born but she says that I told her that it was not good to be on Depo for a long time so when she was due to get her last Depo she did not come in. She did not think about what else she wanted to do instead. She says she has not been using condoms either. In talking about it more she is clear that she does not want to get . She says the diarrhea was last present on the weekend which was yesterday and she does have a little pain in her right upper abdomen She appears very pale. PFSH Surgical History H/O tooth extraction Family History Mother HTN (hypertension) Father Diabetes Sister HTN (hypertension) Maternal Aunt Breast cancer Social History Alcohol intake: current Alcohol intake frequency: holidays/special occasions only Patient Tobacco Use Status: Never used Tobacco Substance Use Type: Marijuana 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al status: unemployed 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: left hand Female Reproductive History Menstrual Age of Menarche: 12 Duration of menses: 6-7 days Date of last menstrual period: 05/30/23 control method: none Total pregnancies: 2 Full term: 1 Number of Living Children: 1 Ab spontaneous: 1 Date of last pap smear: 11/30/20 (negative) History of abnormal pap smear: No Physical Exam Vital Signs: Last Vital Signs BP 104/66 06/12/23 10:37 BMI result Body Mass Index 22.8 Const Other: Patient appears very pale with rings under her eyes. General: healthy appearing, comfortable, no acute distress, well developed and alert Nutritional Appearance: average body habitus Orientation/consciousness: patient oriented x3 Limitations: no limitations HEENT Head: Yes normocephalic Neck Neck: Yes normal visual inspection Thyroid: Thyroid normal Chest Chest palpation & inspection: normal inspection of the chest Breast/axilla inspection: normal inspection of the breasts and normal inspection of the axillae Breast/axilla palpation: normal palpation of the breasts and normal palpation of the axillae Resp Effort & Inspection: normal respiratory effort GI Inspection: Yes normal to inspection, No Abdominal wall edema and No distended Palpation (GI): Soft to palpation and nontender Other: Normal pelvic exam thin whitish discharge slightly yellowish tinge cervix multiparous long thick closed mobile nontender uterus nontender retroverted patient has a pain but it is mid right upper abdomen. Very good tone with Kegel. General: Yes bladder normal to palpation External Female Exam: normal external appearance and normal appearance of the urethra Speculum Exam - Vagina: normal appearance of the vagina, normal palpation and normal vaginal discharge Speculum Exam - Cervix: normal appearance of the cervix, normal palpation and nontender Bimanual exam- vagina & uterus: normal bimanual exam, normal palpation, uterine size normal, bladder normal to palpation, consistency normal, normal palpation, uterine mobility normal, uterine shape normal, No Cervical tenderness present, non-tender and no cervical motion tenderness Bimanual Exam- Adnexa, other: normal adnexae, no masses, normal and No adnexal tenderness Neuro General: patient oriented x3 Assessment & Plan Assessment & Plan (1) Screen for sexually transmitted diseases: Code(s): Z11.3 - Encounter for screening for infections with a predominantly sexual mode of transmission (2) Cervical cancer screening: Comment: 11/27/2020 = 1st Pap,= negative. Code(s): Z12.4 - Encounter for screening for malignant neoplasm of cervix (3) Well woman exam with routine gynecological exam: Code(s): Z01.419 - Encounter for gynecological examination (general) (routine) without abnormal findings (4) Depo-Provera contraceptive status: Comment: Depo last given 01/11/2022. was due 04/05/2022,..; States she was supposed to get it last February has it at home. To restart with next menses06/12/23.. Code(s): Z30.42 - Encounter for surveillance of injectable contraceptive (5) Abdominal pain, vomiting, and diarrhea: Comment: All last week urinary symptoms started soon after the onset of those symptoms\, getting better... Code(s): R10.9 - Unspecified abdominal pain; R11.10 - Vomiting, unspecified; R19.7 - Diarrhea, unspecified (6) Dysuria: Comment: Started during sick episode last week Code(s): R30.0 - Dysuria Plan Will send patient to the lab to get a UA C&S to check for UTI I asked her to call in 3 days to find out the results we will certainly call her if there is positive results. I urged drinking more fluids as she recovers from her viral illness what ever it was. Discussed both masking and also condom use if she does not wish to be . If she wishes to start back on the Depo she has it at home and she should call the office when she gets her. So that she can come in and get her Depo-Provera then. Pap smear was done and testing for gonorrhea chlamydia trichomoniasis Gardnerella and Anna. Discussed thinking about what other methods she would want for control but for now she wants to get back on the Depo. She says her daughter was sick before she was not she thinks she caught it from her daughter she works as a [employer]IDE. Orders: Orders Urine Culture Today R10.9 - Unspecified abdominal pain, R11.10 - Vomiting, unspecified, R19.7 - Diarrhea, unspecified, R30.0 - Dysuria, Z01.419 - Encounter for gynecological examination (general) (routine) without abnormal findings, Z11.3 - Encounter for screening for infections with a predominantly sexual mode of transmission, Z12.4 - Encounter for screening for malignant neoplasm of cervix, Z30.42 - Encounter for surveillance of injectable contraceptive Bacterial Vaginosis Panel Today Z11.3 - Encounter for screening for infections with a predominantly sexual mode of transmission CT NG by PCR Today Z11.3 - Encounter for screening for infections with a predominantly sexual mode of transmission Pap Smear Today Z12.4 - Encounter for screening for malignant neoplasm of cervix Medications: Refilled medroxyprogesterone Restart the Depo with next menses 150 mg IM Q12W 1 mL 5RF 12 weeks Coding Level of Care Code Est Pt Prev Care 18-39y(22820) Diagnoses Screen for sexually transmitted diseases Z11.3 Cervical cancer screening Z12.4 Well woman exam with routine gynecological exam Z01.419 Depo-Provera contraceptive status Z30.42 Abdominal pain, vomiting, and diarrhea R10.9; R11.10; R19.7 Dysuria R30.0
== END 2023-06-12 11:45 | disposition home or self-care (01) ==
LOC: HO.HWSM 10:18
PROVIDERS: Visit Provider Advanced Practice Midwife
DX: Z01.419 Encounter for gynecological examination (general) (routine) without abnormal findings (principal); Z30.42 Encounter for surveillance of injectable contraceptive; R10.9 Unspecified abdominal pain; R11.10 Vomiting, unspecified; R19.7 Diarrhea, unspecified; R30.0 Dysuria
CPT/HCPCS: 99395

== ENCOUNTER 2023-06-12 10:17 | Outpatient (REF) | payer OTHER, SELFPAY ==
[2023-06-13 11:44] LABS: CT PCR NOT DETECTED (Not Detect.); NG PCR NOT DETECTED (Not Detect.)
[2023-06-13 12:48] LABS: BV Int Neg Control Negative (Negative); BV Int Pos Control Positive (Positive)
[2023-06-29 05:09] LABS: HPV 16 RNA NOT DETECTED (NOT DETECTED); HPV mRNA E6/E7 rflx Detected (Not Detected)
== END 2023-06-12 10:18 | disposition home or self-care (01) ==
LOC: HO.LNP 10:17
PROVIDERS: Visit Provider Advanced Practice Midwife
DX: Z01.419 Encounter for gynecological examination (general) (routine) without abnormal findings (principal); Z11.3 Encounter for screening for infections with a predominantly sexual mode of transmission; Z11.51 Encounter for screening for human papillomavirus (HPV); R30.0 Dysuria; R10.9 Unspecified abdominal pain
CPT/HCPCS: 0353U; 87480; 87510; 87624; 87625; 87660; 88142; 99395

== ENCOUNTER 2023-06-13 10:19 | Emergency (ER) | payer OTHER, SELFPAY ==
--- NOTE | 2023-06-13 | ECG_ITS ---
Test Reason : vomiting Blood Pressure : / mmHG Vent. Rate : 099 BPM Atrial Rate : 099 BPM P-R Int : 140 ms QRS Dur : 068 ms QT Int : 324 ms P-R-T Axes : 062 064 018 degrees QTc Int : 415 ms Normal sinus rhythm Normal ECG When compared with ECG of 15-SEP-2021 07:53, Non-specific change in ST segment in Anterior leads T wave amplitude has decreased in Anterior leads Referred By: Generic ED Physician Electronically Signed By:DEE STERN
--- NOTE | ~2023-06-13 | XR_ITS ---
EXAMINATION: XR CHEST CLINICAL INFORMATION: Left-sided pain. COMPARISON: None available. TECHNIQUE: 2 views of the chest were obtained. FINDINGS: No significant abnormality is noted involving the heart, lungs, mediastinum, bony thorax or soft tissues. XR/XR chest 2V IMPRESSION: Unremarkable examination.
[2023-06-13 10:21] VITALS: BP 122/79; PULSE 108; RESP 20; TEMP 36; O2SAT 100; BMI 22.0
[2023-06-13 11:07] LABS: MANUAL DIFF FLAG NO
[2023-06-13 11:09] LABS: Basophils Percent Auto 0.2 % (0-2); Eosinophils Percent Auto 0.1 % (0-4); Hematocrit 34.3 % (37.0-47.0); Imm Gran Abs Auto 0.05 X10*3/uL (0.00-0.03); Imm Gran Pct Auto 0.5 % (0.0-0.4); Lymphocytes Absolute Auto 1.5 X10*3/uL (1.2-4.9); Lymphocytes Percent Auto 16.3 % (20-40); Mean Corpuscular Hemoglobin 30.9 pg (27.0-33.0); Mean Corpuscular Volume 88.4 fL (80.0-98.0); Mean Platelet Volume 10.4 fL (9.4-12.3); Monocytes Absolute Auto 0.9 X10*3/uL (0.1-1.2); Monocytes Percent Auto 9.5 % (2-11); Neutrophils Absolute Auto 6.9 x10*3/uL (2.0-8.3); Neutrophils Percent Auto 73.4 % (45-73); Platelet Count 307 X10*3/uL (160-400); Red Blood Count 3.88 X10*6/uL (4.20-5.50); Red Cell Distribution Width 11.4 % (11.0-16.0); White Blood Count 9.5 X10*3/uL (4.8-10.8)
[2023-06-13 11:23] LABS: Alanine Aminotransferase 9 U/L (0-31); Albumin Level 4.2 g/dL (3.5-5.0); Alkaline Phosphatase 62 U/L (39-117); Anion Gap 12 (12-20); Aspartate Amino Transferase 13 U/L (5-31); Bilirubin Total 0.8 mg/dL (0.0-1.0); Blood Urea Nitrogen 10 mg/dL (9-16); Calcium 9.6 mg/dL (8.4-10.2); Carbon Dioxide 29 mmol/L (22-29); Chloride 99 mmol/L (96-108); Creatinine Clr Calc Pharmacy 99.6; Estimated Glomerular Filt Rate > 60; Glucose Random 95 mg/dL (60-115); Magnesium 1.7 mg/dL (1.6-2.6); Potassium 3.1 mmol/L (3.3-5.1); Sodium 137 mmol/L (135-145); Total Protein 8.2 g/dL (6.5-8.0)
[2023-06-13 11:30] LABS: COVID-19 Test Negative (Negative); IDNOW Serial# 08D9AD1C; IDNOW Serial# 152EDE1D; Influenza A Negative (Negative); Influenza B2 Negative (Negative)
--- NOTE | 2023-06-13 12:00 | ED_ITS ---
HPI - Abdominal Pain General Chief Complaint: Abdominal Pain Stated Complaint: Abd pain Time Seen by Provider: 06/13/23 11:40 Source: patient and old records reviewed Mode of arrival: ambulatory Limitations: no limitations History of Present Illness HPI narrative: 23 yo female not on OCPs, anemia, sick last week M-F URI symptoms with n/v/d no testing done managed at home. Since Monday now has LUQ and L rib pain with inspiration denies travel, sick contacts, hormone use. She is able to eat and drink. No n/v/d since Monday. She has pain on that side with moving and breathing. MD elicited complaint: abdominal pain Pertinent past history: none Onset (ago): day(s) (Monday) Pain Consistency: intermittent Location: chest and LUQ Severity: moderate Quality: stabbing Radiation: none Migration to: no migration Exacerbating factors: movement and other (inspiration) Relieving factors: nothing Context: other (recent viral syndrome) Related Data Previous Rx's Medication Instructions Recorded medroxyprogesterone 150 mg/mL 150 mg IM Q12W 12 weeks #1 mL 06/12/23 intramuscular suspension cyclobenzaprine 10 mg tablet 10 mg PO TID PRN muscle spasm #20 06/13/23 tabs lidocaine 5 % topical patch 1 patch topical DAILY #30 ea 06/13/23 Allergies Allergy/AdvReac Type Severity Reaction Status Date / Time No Known Allergies Allergy Verified 06/13/23 10:24 [No Known Allergies*] Review of Systems Review of Systems Constitutional : No Weight loss, No Fever, No Chills ENT/Mouth : No sore throat, No Rhinorrhea Eyes: No Eye Pain, No Swelling Cardiovascular : pos Chest Pain, no SOB, no Dyspnea on Exertion, No Orthopnea, No Edema, No Palpitations Respiratory : No Cough, No Sputum Gastrointestinal : no Nausea, No Vomiting, No Diarrhea, pos abdominal Pain, No Hematochezia, No Melena Genitourinary : No Dysuria, No Urinary Frequency Musculoskeletal : No joint pain, No Myalgias, No Joint Swelling Skin : No Skin Lesions, No rash Neuro : No Weakness, No Numbness, No Dizziness, No Headache Psych : No Anxiety/Panic, No Depression All other systems reviewed and are negative PMFSH Past Medical History Attestation statement: The following information was validated with the patient. Source: old records reviewed Medical History Hx of iron deficiency anemia Surgical History H/O tooth extraction Family History Family History Mother HTN (hypertension) Father Diabetes Sister HTN (hypertension) Maternal Aunt Breast cancer Social History Social History Alcohol intake: current Alcohol intake frequency: holidays/special occasions only Patient Tobacco Use Status: Never used Tobacco Substance Use Type: Marijuana Advance Directives: No 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al status: unemployed 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: left hand Physical Exam ED Vital Signs: Vital Signs - 24 hr 06/13/23 10:21 Temperature 96.8 F Pulse Rate 108 H Respiratory Rate 20 Blood Pressure 122/79 Pulse Oximetry 100 Oxygen Delivery Method Room Air BMI result Body Mass Index 22.0 Appearance: Alert. Oriented X3. No acute distress. Eyes: Pupils equal, round and reactive to light. ENT: Pharynx normal. Neck: Normal inspection. Neck supple. CVS: Normal heart rate and rhythm. Pulses normal. Chest: L rib ttp no crepitus felt Respiratory: No respiratory distress. Breath sounds normal. Abdomen: Soft and nontender. Skin: Skin warm and dry. Normal skin color. Normal skin turgor. Extremities: No lower extremity edema. No calf ttp Neuro: Oriented X 3. No motor deficit. No sensory deficit. Course Course Course Narrative: trop and ddimer negative stable for DC Medical Decision Making Medical Decision Making MDM Narrative: 23 yo female not on OCPs, anemia here with c/o resolved URI with n/v/d M-F last week but now with resulting LUQ/rib pain reproduced with movements and inspiration. She is having ttp along chest wall and it hurts to move and breathe. At this time will need basic labs, ddimer, EKG, mono and IVF along with supportive medications, PO K ordered. ddimer and mono ordered if mono positive would consider US of spleen but otherwise abdomen is benign seems more rib and chest related Differential Diagnosis Differential Diagnoses: The differential diagnosis associated with the presentation includes mono, viral syndrome, rib pain, pneumonia, VTE Admission/Observation Consideration of admission/observation: Escalation of care including admission/observation considered work up negative tolerating PO stable for DC Lab Data MDM Lab Attestation statement: I reviewed the patient's lab results. 06/13/23 10:59 06/13/23 10:59 Labs: Lab Results 06/13/23 06/13/23 Range/Units 10:59 12:12 WBC 9.5 (4.8-10.8) X10*3/uL RBC 3.88 L (4.20-5.50) X10*6/uL Hgb 12.0 (12.0-16.0) g/dl Hct 34.3 L (37.0-47.0) % MCV 88.4 (80.0-98.0) fL MCH 30.9 (27.0-33.0) pg MCHC 35.0 (31.0-35.0) g/dl RDW 11.4 (11.0-16.0) % Plt Count 307 (160-400) X10*3/uL MPV 10.4 (9.4-12.3) fL Immature Gran % (Auto) 0.5 H (0.0-0.4) % Neut % (Auto) 73.4 H (45-73) % Lymph % (Auto) 16.3 L (20-40) % [place] % (Auto) 9.5 (2-11) % Eos % (Auto) 0.1 (0-4) % Baso % (Auto) 0.2 (0-2) % Lymph # (Auto) 1.5 (1.2-4.9) X10*3/uL [place] # (Auto) 0.9 (0.1-1.2) X10*3/uL Eos # (Auto) 0.0 (0.0-0.4) X10*3/uL Baso # (Auto) 0.0 (0.0-0.2) X10*3/uL Abs Immat Gran (auto) 0.05 H (0.00-0.03) X10*3/uL Absolute Neuts (auto) 6.9 (2.0-8.3) x10*3/uL Absolute Nucleated RBC 0.000 (0.0-0.012) X10*3/uL Nucleated RBC % (auto) 0.0 (0.0-0.2) /100WBC D-Dimer High Sensitivty 204 NG/ML Sodium 137 (135-145) mmol/L Potassium 3.1 L (3.3-5.1) mmol/L Chloride 99 (96-108) mmol/L Carbon Dioxide 29 (22-29) mmol/L Anion Gap 12 (12-20) BUN 10 (9-16) mg/dL Creatinine 0.72 (0.5-1.4) mg/dL Estim Creat Clear Calc 99.6 Estimated GFR > 60 Random Glucose 95 (60-115) mg/dL Calcium 9.6 (8.4-10.2) mg/dL Magnesium 1.7 (1.6-2.6) mg/dL Total Bilirubin 0.8 (0.0-1.0) mg/dL AST 13 (5-31) U/L ALT 9 (0-31) U/L Alkaline Phosphatase 62 (39-117) U/L Troponin I High Sens < 2.7 (<3.5-17.0) ng/L Total Protein 8.2 H (6.5-8.0) g/dL Albumin 4.2 (3.5-5.0) g/dL COVID-19 (CAMELIA) Negative (Negative) COVID-19 Clin Com See Note Monoscreen Negative (Negative) Influenza Type A (RAJ) Negative (Negative) Influenza Type B (RAJ) Negative (Negative) Influenza A & B Note See Note Independent Interpretation I performed an independent interpretation of an: EKG and Plain X-Ray (normal ) Interpretation: Rate: 73 Rhythm: NSR [place]: normal Normal P waves. Normal ELLEN. Normal QRS complex. ST T wave : nonspecific ST T wave changes, inverted t waves III qTC: 415 prior studies: no acute ischemia The study has been interpreted contemporaneously by me. . Radiology Impression Discussion of test interpretation with radiology: I have reviewed the radiologist's reading. External Record Review External record reviewed: Inpatient record Prescription Management I considered prescription management with: Other Medications Administered Discontinued Medications Generic Name Dose Route Start Last Admin Trade Name Freq PRN Reason Stop Dose Admin Famotidine 20 mg 06/13/23 11:42 06/13/23 12:19 Famotidine/Pf 20 Mg/2 Ml Vial IVPUSH 06/13/23 11:43 20 mg ONCE ONE Administration Sodium Chloride 1,000 mls @ 999 mls/hr 06/13/23 11:45 06/13/23 12:18 Ns IV 06/13/23 12:45 999 mls/hr .Q1H1M TAMMY Administration Ketorolac Tromethamine 15 mg 06/13/23 11:41 06/13/23 12:18 Ketorolac Tromethamine 15 Mg/Ml Vial IVPUSH 06/13/23 11:42 15 mg ONCE ONE Administration Ondansetron HCl 4 mg 06/13/23 11:41 06/13/23 12:18 Ondansetron Hcl 4 Mg/2 Ml Vial IVPUSH 06/13/23 11:42 4 mg ONCE ONE Administration Potassium Chloride 40 meq 06/13/23 12:00 06/13/23 12:19 Potassium Chloride Packet 20 Meq Packet PO 06/13/23 12:01 40 meq ONCE ONE Administration Discharge Plan Discharge Clinical Impression: Pain in rib, Acute hypokalemia Patient Disposition: Home, Self-Care Instructions: Chest Pain (ED), Hypokalemia (ED) Additional Instructions: potassium was low we did replete it make sure you are eating potassium rich foods- orange juice, bananas, potatoes. you otherwise had reassuring labs - flu, covid, rsv and mono are negative your tests for the heart EKG, heart blood test, blood clot test and chest xray were normal. at this time will place on pain patches and muscle relaxers take it easy return for fevers, worsening pain, return of n/v/d. Prescriptions: New cyclobenzaprine 10 mg tablet 10 mg PO TID PRN (Reason: muscle spasm) Qty: 20 0RF lidocaine 5 % adhesive patch,medicated 1 patch topical DAILY Qty: 30 0RF Rx Instructions: leave on most painful area for up to 12 hrs No Action medroxyprogesterone 150 mg/mL suspension 150 mg IM Q12W 84 Days Qty: 1 5RF Rx Instructions: Restart the Depo with next menses Stand Alone Forms: Work/School Release
[2023-06-13] MEDS: 0.9 % Sodium Chloride 1,000 ML 999 ML IV (12:18)
[2023-06-13] MEDS: ondansetron HCL 4 MG/2 ML VIAL IVPUSH (12:18)
[2023-06-13] MEDS: Ketorolac Tromethamine 15 MG/ML VIAL IVPUSH (12:18)
[2023-06-13] MEDS: Famotidine/PF 20 MG/2 ML VIAL IVPUSH (12:19)
[2023-06-13] MEDS: Potassium Chloride Packet 20 MEQ PACKET 40 MEQ PO (12:19)
[2023-06-13 12:30] LABS: D Dimer High Sensitivity 204 NG/ML
[2023-06-13 12:50] LABS: Troponin-I High Sensitivity < 2.7 ng/L (<3.5-17.0)
[2023-06-13 13:19] LABS: Monotest Negative (Negative)
[2023-06-13 14:26] VITALS: BP 119/66; PULSE 77; RESP 15; O2SAT 98
== END 2023-06-13 14:29 | disposition home or self-care (01) ==
PROVIDERS: Emergency Provider Emergency Medicine
DX: R10.12 Left upper quadrant pain (principal); R07.81 Pleurodynia; E87.6 Hypokalemia; R11.2 Nausea with vomiting, unspecified; Z11.52 Encounter for screening for COVID-19; Z79.899 Other long term (current) drug therapy
CPT/HCPCS: 36415; 71046; 80053; 83735; 84484; 85025; 85379; 86308; 87502; 87635; 93005; 96361; 96374; 96375; 99284; J1885; J2405

== ENCOUNTER → 2023-06-13 10:33 | Outpatient (BNV) | payer OTHER, SELFPAY | PROVIDERS: Emergency Provider Emergency Medicine; Visit Provider Internal Medicine | DX: R07.9 Chest pain, unspecified (principal) | CPT/HCPCS: 93010 ==

== ENCOUNTER 2023-07-08 15:59 | Emergency (ER) | payer OTHER, SELFPAY ==
[2023-07-08 16:24] VITALS: BP 115/68; PULSE 94; RESP 16; TEMP 37.1; O2SAT 96; BMI 22.5
--- NOTE | 2023-07-08 16:24 | ED.GENADULT ---
HPI - General Adult General Chief complaint: General Medical Stated complaint: Throat pain Time Seen by Provider: 07/08/23 18:27 Source: patient Mode of arrival: ambulatory Limitations: no limitations History of Present Illness HPI narrative: 23 year old female presents to the ED for evaluation of sore throat x4 days. Endorses associated chills and odynophagia. States she has been able to control secretions/ saliva. No OTC pain meds at home. Denies fever, cough, sputum production, dysphagia, n/v. Denies sick contacts. Denies history of strep throat. Related Data Previous Rx's Medication Instructions Recorded medroxyprogesterone 150 mg/mL 150 mg IM Q12W 12 weeks #1 mL 06/12/23 intramuscular suspension cyclobenzaprine 10 mg tablet 10 mg PO TID PRN muscle spasm #20 06/13/23 tabs lidocaine 5 % topical patch 1 patch topical DAILY #30 ea 06/13/23 metronidazole 0.75 % (37.5 mg/5 1 appful vaginal BEDTIME 5 days 06/13/23 gram) vaginal gel #70 grams benzocaine 15 mg-menthol 2.6 mg 1 michael mucous membrane Q2-4H PRN 07/08/23 lozenges (Cepacol Sore Throat sore throat #16 ea (benzocaine-menthol)) penicillin V potassium 500 mg 500 mg PO BID 10 days #20 tabs 07/08/23 tablet prednisone 20 mg tablet 40 mg (2 x 20 mg) PO DAILY 5 days 07/08/23 #10 tabs Allergies Allergy/AdvReac Type Severity Reaction Status Date / Time No Known Allergies Allergy Verified 07/08/23 16:24 [No Known Allergies*] Review of Systems Review of Systems: Constitutional: No fever, fatigue, night sweats, weight changes, +chills ENT/Mouth: No ear pain, hearing loss, nasal congestion, sinus pain, rhinorrhea, +sore throat, +odynophagia, No dysphagia Eyes: No eye pain, swelling, redness, vision changes, discharge Cardio: No chest pain, palpitations, PACK, orthopnea, peripheral edema Pulm: No SOB, cough, sputum, wheezing, dyspnea, hemoptysis GI: No nausea, vomiting, hematemesis, abdominal pain, diarrhea, constipation, hematochezia, melena : No irregular bleeding, dysuria, frequency, urgency, hesitancy, hematuria, flank pain, urinary flow changes, urinary incontinence or retention MSK: No back pain, neck pain, joint pain, myalgias Skin: No lesions, rashes Neuro: No weakness, numbness, paresthesias, LOC, dizziness, headache Psych: No anxiety/panic, depression, SI/HI, AH/VH All other systems reviewed and are negative. [facility] Past Medical History Attestation statement: The following information was validated with the patient. Source: old records reviewed and nursing notes reviewed 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: left hand Physical Exam ED Vital Signs: Vital Signs - 24 hr 07/08/23 16:24 07/08/23 18:39 Temperature 98.8 F 99.4 F Pulse Rate 94 103 H Respiratory Rate 16 20 Blood Pressure 115/68 139/70 Pulse Oximetry 96 94 Oxygen Delivery Method Room Air Room Air BMI result Body Mass Index 22.5 Vital signs stable, afebrile Const General: cooperative, healthy appearing, comfortable, no acute distress, alert and awake Orientation/consciousness: patient oriented x3 Limitations: no limitations HENMT Other: + posterior oropharynx erythematous, no edema, uvula is midline, there is bilateral tonsilar edema without tonsilar exudates. no peritonsillar masses. controlling secretions and speaking in complete sentences. Head: Yes normal to inspection, Yes normocephalic and Yes atraumatic Ears: hearing grossly normal bilaterally, external ears normal, TM's normal bilaterally, EAC's normal, mastoids normal and no periauricular adenopathy General nose exam: Normal external nose present and No nasal discharge present Face and sinus: Yes normal facial exam and Yes sinuses nontender Eyes General: appearance normal, both eyes and all related structures Conjunctivae: conjunctivae normal Sclerae: sclerae normal Pupils: Equal, round and reactive pupils present Neck Other: + no cervical, submandibular or submental LAD. Neck: Yes normal visual inspection and Yes full ROM Resp Effort & Inspection: normal respiratory effort and able to speak in complete sentences Auscultation: clear to auscultation bilaterally Cardio Rate: regular rate Rhythm: regular rhythm GI Inspection: Yes normal to inspection Palpation (GI): Soft to palpation and nontender Skin General skin exam: no rashes or lesions noted Neuro General: patient oriented x3, gait normal and moves all extremities Cranial nerves: Yes Equal, round and reactive pupils present Extrem General: Yes normal to inspection Course Course Course Narrative: RME:?23 yo female here for eval of sore throat x4 days. assoc chills. no fever. Able to swallow saliva. Endorses odynophagia. no sick contacts. no fx of strep throat. PE: no stridor. tonsillar edema. no tonsillar exudates. controlling secretions. speaking in full sentences. viral serology and strep swab ordered. Full HPI, ROS and PE to be performed by the primary ED provider. Reevaluation(s) Reevaluation #1: 1915-- patient has tested positive for strep throat which is consistent with exam findings. she tested negative for covid/flu/rsv. > on re-evaluation patient reports improvement in pain with PO decadron. on exam, tonsilar edema has improved. she continues to control her secretions and speak in complete sentences. penicillin, prednisone, and cepacol throat lozenges sent to pharmacy. Patient has remained stable throughout ED visit today. Discussed worrisome signs and symptoms and when to return to the ED. All questions answered at this time. Patient is agreeable with disposition and stable for discharge. Medications Administered Discontinued Medications Generic Name Dose Route Start Last Admin Trade Name Freq PRN Reason Stop Dose Admin Dexamethasone Sodium Phosphate 10 mg 07/08/23 18:32 07/08/23 18:56 Dexamethasone Sod Phosphate 10 Mg/Ml Vial IVPUSH 07/08/23 18:33 10 mg ONCE ONE Administration Medical Decision Making Medical Decision Making [facility] Narrative: 23 year old female presents to the ED for evaluation of sore throat x4 days. Vital signs stable. She is nontoxic appearing and in NAD. posterior oropharynx erythematous, no edema, uvula is midline, there is bilateral tonsilar edema without tonsilar exudates. no peritonsillar masses. controlling secretions and speaking in complete sentences. no cervical, submental or submandibular LAD. Bilateral TMs and EACs wnl. no stridor. lungs cta b/l. Differential diagnosis includes strep throat, mono, viral syndrome. 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 Viral and strep swabs ordered. Plan for PO decadron and discharge home w/ abx and steroids. Differential Diagnosis Differential Diagnoses: The differential diagnosis associated with the presentation includes as above. Admission/Observation Not indicated Lab Data MDM Lab Attestation statement: I reviewed the patient's lab results. as above Labs: Lab Results 07/08/23 07/08/23 Range/Units 16:28 16:29 Influenza Type A (PCR) NEGATIVE (Negative) Influenza Type B (PCR) NEGATIVE (Negative) RSV RNA Qual (PCR) NEGATIVE (Negative) SARS-CoV-2 RNA (RT-PCR) NEGATIVE (Negative) S. pyogenes GrpA RAJ Positive A (Negative) External Record Review External record reviewed: Inpatient record Prescription Management I considered prescription management with: Pain Medication, Antibiotic (pen V) and Other (prednisone) Social Determinants Patient?s care significantly limited by Social Determinants of Health including: Other Social Determinant of Health Critical Care Time Critical Care Time Critical Care Time: No Discharge Plan Discharge Clinical Impression: Acute streptococcal pharyngitis Patient Disposition: Home, Self-Care Instructions: Pharyngitis (ED), Strep Throat (ED) Additional Instructions: You were seen in the ED today for evaluation of sore throat. You tested negative for covid, flu, and rsv. You tested positive for strep throat. Penicillin is an antibiotic that has been sent to your pharmacy. Take this twice daily for the next 10 days to treat strep throat. Do not stop taking these antibiotics early or miss any doses as this may cause infection to return or worsen. Prednisone is a steroid that has been sent to your pharmacy. You were given a dose of steroids in ED so please start taking prednisone tomorrow. Cepacol throat lozenges have been sent to your pharmacy to help with throat pain. You may also purchase [id number] chloraseptic spray to numb your throat. Take Tylenol and ibuprofen as needed for body aches or fevers. Make sure to change your toothbrush as this contains bacteria. Strep throat is contagious. If anyone else in your household is exhibiting symptoms, please advise them to come to the ED, urgent care, or to see their primary care provider. Follow up with your PCP as needed. Return to the emergency department if your symptoms persist or worsen despite treatment or if you have difficulty swallowing, opening your mouth, or develop a rash. In the case of emergency, call 911.? Prescriptions: New penicillin V potassium 500 mg tablet 500 mg PO BID 10 Days Qty: 20 0RF prednisone 20 mg tablet 40 mg PO DAILY 5 Days Qty: 10 0RF Cepacol Sore Throat (shanna-men) 15-2.6 mg lozenge 1 michael mucous membrane Q2-4H PRN (Reason: sore throat) Qty: 16 0RF No Action metronidazole 0.75 % (37.5mg/5 gram) gel 1 appful vaginal BEDTIME 5 Days Qty: 70 0RF cyclobenzaprine 10 mg tablet 10 mg PO TID PRN (Reason: muscle spasm) Qty: 20 0RF lidocaine 5 % adhesive patch,medicated 1 patch topical DAILY Qty: 30 0RF Rx Instructions: leave on most painful area for up to 12 hrs medroxyprogesterone 150 mg/mL suspension 150 mg IM Q12W 84 Days Qty: 1 5RF Rx Instructions: Restart the Depo with next menses Stand Alone Forms: Work/School Release
[2023-07-08 16:41] LABS: IDNOW Serial# 08D9AD1C; Strep A Nucleic Acid Positive (Negative)
[2023-07-08 17:13] LABS: Influenza A PCR NEGATIVE (Negative); Influenza B PCR NEGATIVE (Negative); Resp Syncy Virus RNA Qual PCR NEGATIVE (Negative); SARS COV2 PCR INHOUSE NEGATIVE (Negative)
[2023-07-08 18:39] VITALS: BP 139/70; PULSE 103; RESP 20; TEMP 37.4; O2SAT 94
[2023-07-08] MEDS: dexAMETHasone sod phosphate 10 MG/ML VIAL IVPUSH (18:56)
[2023-07-08 19:26] VITALS: BP 139/70; PULSE 103; RESP 20; TEMP 37.4; O2SAT 94
== END 2023-07-08 19:27 | disposition home or self-care (01) ==
PROVIDERS: Physician Assistant Medical; Emergency Provider Emergency Medicine
DX: J02.0 Streptococcal pharyngitis (principal); R07.0 Pain in throat; R13.10 Dysphagia, unspecified; Z11.52 Encounter for screening for COVID-19; Z20.822 Contact with and (suspected) exposure to COVID-19; Z79.899 Other long term (current) drug therapy
CPT/HCPCS: 0241U; 87651; 99282; 99283; J1100

== ENCOUNTER 2023-08-21 15:35 | Outpatient (REF) | payer OTHER, SELFPAY | END 2023-08-21 15:36 | disposition home or self-care (01) | LOC: HO.LNP 15:35 | PROVIDERS: Visit Provider Obstetrics & Gynecology | DX: R87.610 Atypical squamous cells of undetermined significance on cytologic smear of cervix (ASC-US) (principal); R87.810 Cervical high risk human papillomavirus (HPV) DNA test positive | CPT/HCPCS: 57454; 81025; 88305 ==

== ENCOUNTER 2023-08-21 15:35 | Outpatient (AMB) | payer OTHER, SELFPAY ==
[2023-08-21 15:48] VITALS: BP 118/70; BMI 22.3
--- NOTE | 2023-08-21 15:48 | MHC.OFFVIS ---
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: No Information Interpreted: non-clinical & clinical Radiator Tester: Radiator Tester Present (Barbara HUBBARD) Accompanied by: Self / Same As Patient Allergies No Known Allergies [No Known Allergies*] Allergy (Verified 07/08/23 16:24) Is last menstrual period known: Yes Last menstrual period: 08/12/23 HPI Comments Details: Presenting for abnormal Pap smear showing ascus/HPV E6/E7 positive, HPV 16/18/45 negative PFSH Medical History Hx of iron deficiency anemia Surgical History H/O tooth extraction Family History Mother HTN (hypertension) Father Diabetes Sister HTN (hypertension) Maternal Aunt Breast cancer Social History Alcohol intake: current Alcohol intake frequency: holidays/special occasions only Patient Tobacco Use Status: Never used Tobacco Substance Use Type: Marijuana 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al status: unemployed 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: left hand Female Reproductive History Menstrual Age of Menarche: 12 Date of last menstrual period: 08/12/23 Review of Systems Const All systems reviewed & are unremarkable except as noted in HPI and below Reports as per HPI and Reports no additional complaints GI Reports no additional complaints Reports no additional complaints Physical Exam Vital Signs: Last Vital Signs BP 118/70 08/21/23 15:48 BMI result Body Mass Index 22.3 Office Procedures Colposcopy Before the procedure was started discussed with the patient the procedure, alternatives & all the risks associated with the procedure (bleeding, infection, injury to vagina, bladder, vessels, possible need for transfusion with all its risks) then patient signed the consent Pap smear = ascus/HPV E6/E7 positive, HPV 16/14/45 negative Urine test done in the office was negative Speculum inserted, acetic acid used Colposcopy done Transformation zone seen, acetowhite lesions identified at 4+6+9+11+12+1 o?clock, cervical biopsies taken from 4+6+9+11+12+1 o?clock, ECC done afterwards. Vaginoscopy of the upper vagina showed no evidence of any aceto-white lesions Monsel solution used for hemostasis. The patient tolerated well . At the end the patient was instructed to call if temp>100.4, abdominal pain, n/v, bleeding; The patient was given the following instructions: nothing per vagina, no intercourse or bath tub use. All questions answered the patient verbalized understanding. Instructed the patient to make an appointment in 2 weeks for follow-up This note was generated with a voice recognition program. Some errors may have been overlooked during the review of this note. Sometimes these errors may affect the content or meaning of a given sentence. [id number] of cervix including upper vagina with biopsy and ECC Procedure code (CPT) selection complete Results AMB Test Urine AMB Test Urine Negative Last Edit by HAYDEE Silva on 08/21/23 15:55 Results Reviewed Results Reviewed: Laboratory Last Values Tst Clinic Negative 08/21/23 15:55 Assessment & Plan Assessment & Plan (1) ASCUS with positive high risk HPV cervical: Code(s): R87.610 - Atypical squamous cells of undetermined significance on cytologic smear of cervix (ASC-US); R87.810 - Cervical high risk human papillomavirus (HPV) DNA test positive Category: Medical Plan: Discussed with the patient the result of her abnormal pap, its significance, risk of progression, persistence, and regression. the false positive/negative rate of a Pap smear as a screening test in detecting cervical cancer and the indication for a diagnostic test -colposcopy, biopsy, endocervical curettage. The patient verbalized understanding and agreed with the plan, all questions answered. Colposcopy/biopsy/ECC done, see procedure note. Orders: Orders AMB HCG Urine Test Today Z32.02 - Encounter for test, result negative AMB Colposcopy Today R87.610 - Atypical squamous cells of undetermined significance on cytologic smear of cervix (ASC-US), R87.810 - Cervical high risk human papillomavirus (HPV) DNA test positive Coding Level of Care Code Procedure Only Diagnoses ASCUS with positive high risk HPV cervical R87.610; R87.810 CPT Codes Colposcopy - CPT: 02467-Squbuynun of cervix including upper vagina with biopsy and ECC ([id number])
== END 2023-08-21 16:01 | disposition home or self-care (01) ==
PROVIDERS: Visit Provider Obstetrics & Gynecology
DX: R87.610 Atypical squamous cells of undetermined significance on cytologic smear of cervix (ASC-US) (principal); R87.810 Cervical high risk human papillomavirus (HPV) DNA test positive; Z32.02 Encounter for pregnancy test, result negative
CPT/HCPCS: 57454

== ENCOUNTER 2023-10-03 10:38 | Outpatient (AMB) | payer OTHER, SELFPAY ==
--- NOTE | 2023-10-03 10:46 | MHC.OFFVIS ---
Vital Signs 10/03/23 10:49 Height 5 ft 3 in Weight 125 lb 10.616 oz BMI 22.3 BP 118/60 Intake Visit Reasons: colpo results Allergies No Known Allergies [No Known Allergies*] Allergy (Verified 07/08/23 16:24) HPI Comments Details: Presenting post colpo for follow-up. The patient is doing well with no complaints. The pathology showed the following: A. Endocervix, curettage: Scant superficial strips of endocervical epithelium within normal limits. B. Cervix, 1 o'clock, biopsy: Inflamed cervical transformation zone mucosa with reactive changes. C. Cervix, 4 o'clock, biopsy: Inflamed cervical transformation zone mucosa with reactive changes. D. Cervix, 6 o'clock, biopsy: Inflamed cervical transformation zone mucosa with reactive changes. E. Cervix, 9 o'clock, biopsy: Inflamed cervical transformation zone mucosa with reactive changes. F. Cervix, 11 o'clock, biopsy: Inflamed cervical transformation zone mucosa with reactive changes. G. Cervix, 12 o'clock, biopsy: Inflamed cervical transformation zone mucosa with reactive changes. 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 Female Reproductive History Menstrual Age of Menarche: 12 Review of Systems Const All systems reviewed & are unremarkable except as noted in HPI and below Reports as per HPI and Reports no additional complaints GI Reports no additional complaints Reports no additional complaints Assessment & Plan Assessment & Plan (1) ASCUS with positive high risk HPV cervical: Code(s): R87.610 - Atypical squamous cells of undetermined significance on cytologic smear of cervix (ASC-US); R87.810 - Cervical high risk human papillomavirus (HPV) DNA test positive Category: Medical Plan: Discussed with the patient the pathology results of the colposcopy biopsies & endocervical curettage ( negative). Discussed with the patient the sensitivity specificity, positive and negative predictive value in detecting cervical cancer in addition discussed the regression, persistence and progression rates. Recommended Pap smear in 12 months, if cytology and /or HPV are abnormal will proceed was colposcopy biopsy and endocervical curettage. Instructions given to the patient to schedule a co test appointment in 1 year. All questions answered the patient verbalized understanding. Coding Level of Care Code Est Pt Level 3 (73822) Diagnoses ASCUS with positive high risk HPV cervical R87.610; R87.810
[2023-10-03 10:49] VITALS: BP 118/60; BMI 22.3
== END 2023-10-03 10:53 | disposition home or self-care (01) ==
LOC: HO.HWS 10:38
PROVIDERS: Visit Provider Obstetrics & Gynecology
DX: R87.610 Atypical squamous cells of undetermined significance on cytologic smear of cervix (ASC-US) (principal); R87.810 Cervical high risk human papillomavirus (HPV) DNA test positive
CPT/HCPCS: 99213

== ENCOUNTER → 2023-10-03 10:38 | Outpatient (BNVA) | payer OTHER, SELFPAY | PROVIDERS: Visit Provider Obstetrics & Gynecology | DX: R87.610 Atypical squamous cells of undetermined significance on cytologic smear of cervix (ASC-US) (principal); R87.810 Cervical high risk human papillomavirus (HPV) DNA test positive; Z98.890 Other specified postprocedural states | CPT/HCPCS: 99212 ==

== ENCOUNTER 2024-05-03 14:10 | Emergency (ER) | payer OTHER, SELFPAY ==
--- NOTE | ~2024-05-03 | CT_ITS ---
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 The examination demonstrates a left peritonsillar abscess measuring approximately 1.9 x 1.2 x are proximally 1.5 cm. There is mass effect upon the left side of the nasopharynx. There is bilateral tonsillar hypertrophy. Salivary glands are within normal limits. No sialoliths. No suspicious thyroid nodules. Visualized lung apices are clear. No acute fractures. IMPRESSION: Left peritonsillar abscess as above. This document has been electronically signed by: Phuc Laura MD on 05/03/2024 23:11:13
[2024-05-03 14:27] VITALS: BP 123/84; PULSE 90; RESP 16; TEMP 36.8; O2SAT 99; BMI 23.5
--- NOTE | 2024-05-03 14:37 | ED_ITS ---
HPI - General Adult General Chief complaint: Upper Respiratory Symptoms Stated complaint: strep Time Seen by Provider: 05/03/24 20:24 Source: patient Limitations: no limitations History of Present Illness ED Provider: Rakel Gracia PA-C HPI narrative: 24-year-old female presents with sore throat x3 days. Patient states it is difficult for her to fully open her mouth, associated odynophagia. No known fevers at home. Related Data Previous Rx's ?Medication ?Instructions ?Recorded medroxyprogesterone 150 mg/mL 150 mg IM Q12W 12 weeks #1 mL 06/12/23 intramuscular suspension cyclobenzaprine 10 mg tablet 10 mg PO TID PRN muscle spasm #20 06/13/23 tabs lidocaine 5 % topical patch 1 patch topical DAILY #30 ea 06/13/23 metronidazole 0.75 % (37.5 mg/5 1 appful vaginal BEDTIME 5 days 06/13/23 gram) vaginal gel #70 grams benzocaine 15 mg-menthol 2.6 mg 1 michael mucous membrane Q2-4H PRN 07/08/23 lozenges (Cepacol Sore Throat sore throat #16 ea (benzocaine-menthol)) penicillin V potassium 500 mg 500 mg PO BID 10 days #20 tabs 07/08/23 tablet prednisone 20 mg tablet 40 mg (2 x 20 mg) PO DAILY 5 days 07/08/23 #10 tabs amoxicillin 875 mg-potassium 1 tab PO BID #20 tabs 05/04/24 clavulanate 125 mg tablet Allergies Allergy/AdvReac Type Severity Reaction Status Date / Time No Known Allergies Allergy Verified 05/03/24 14:29 [No Known Allergies*] Review of Systems 2 Review of Systems: Yes all other systems are reviewed and are negative Constitutional: Constitutional: Denies fatigue and Denies fever(s) ENT: Reports sore throat Cardiovascular: Cardiovascular: Denies chest pain and Denies dyspnea Respiratory: Respiratory: Denies cough and Denies dyspnea Gastrointestinal: Gastrointestinal: Denies nausea and Denies vomiting Endocrine: Endocrine: Denies fatigue PMFSH Past Medical History Attestation statement: The following information was validated with the patient. 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: left hand Physical Exam ED Vital Signs: Vital Signs - 24 hr 05/03/24 14:27 05/03/24 23:47 05/04/24 00:43 Temperature 98.2 F Pulse Rate 90 94 Respiratory Rate 16 18 Blood Pressure 123/84 126/76 Pulse Oximetry 99 99 98 Oxygen Delivery Method Room Air Room Air Room Air BMI result Body Mass Index 23.5 Const Other: Alert Orientation/consciousness: patient oriented x3 HENMT Other: Opiate erythematous, uvula deviated to the right, significant left-sided swelling of the hard palate adjacent to the uvula, some degree of trismus, no drooling no hot potato voice Neck Other: Anterior cervical lymphadenopathy, no swelling inferior to the jaw line Resp Effort & Inspection: normal respiratory effort Cardio Other: Normal peripheral perfusion Skin Other: Warm dry no rash Neuro General: patient oriented x3, no focal motor deficits and CN's II-XI intact bilaterally Psych Other: Calm cooperative Course Course Course Narrative: RME, this is a rapid medical exam performed by Shawn Fernandes please refer to primary provider for complete H&P- 24-year-old female presents for evaluation of sore throat for the last 2-3 days. On exam her oropharynx is erythematous with tonsillar hypertrophy and exudates, the left side of the soft palate appears full. She was maintaining her airway and secretions Plan for labs, strep testing and mono testing Reevaluation(s) Reevaluation #1: Considering sepsis, the patient's heart rate is somewhat elevated, she has a leukocytosis, I ordered blood cultures and a lactic, giving fluid and starting antibiotic. She does not require weight based IV fluid as her pressures are normotensive. Time: 20:41 Medications Administered Discontinued Medications Generic Name Dose Route Start Last Admin Trade Name Freq PRN Reason Stop Dose Admin Al Hydroxide/Mg Hydroxide 30 ml 05/03/24 23:38 05/04/24 00:29 Magnesium Hydrox/Alum Hydrox 30 Ml Oral.Susp PO 05/03/24 23:39 30 ml ONCE ONE Administration Dexamethasone Sodium Phosphate 10 mg 05/03/24 20:45 05/03/24 22:41 Dexamethasone Sod Phosphate 10 Mg/Ml Vial IVPUSH 05/03/24 20:46 10 mg ONCE ONE Administration Clindamycin Phosphate 600 mg in 50 mls @ 100 mls/hr 05/03/24 20:41 05/03/24 22:40 Cleocin IV 05/03/24 21:10 100 mls/hr ONCE ONE Administration Sodium Chloride 1,000 mls @ 999 mls/hr 05/03/24 20:45 05/03/24 22:40 Ns IV 05/03/24 21:45 999 mls/hr .Q1H1M TAMMY Administration Iohexol 60 ml 05/03/24 22:35 05/03/24 22:36 Iohexol 350 Mg/Ml 100 Ml Infus..Btl IV 05/03/24 22:36 60 ml ONCE ONE Administration Lidocaine HCl 15 ml 05/03/24 23:38 05/04/24 00:29 Lidocaine Hcl Viscous 2 % 15 Ml Solution MUCOUS MEM 05/03/24 23:39 15 ml ONCE ONE Administration Lidocaine/Epinephrine 10 ml 05/03/24 23:38 05/04/24 00:31 Lidocaine Hcl 1%/Epi 1:100,000 10 Ml Vial INFILTRATI 05/03/24 23:39 10 ml ONCE ONE Administration Midazolam HCl 2 mg 05/03/24 23:31 05/04/24 00:31 Midazolam Hcl 2 Mg/2 Ml Vial IVPUSH 05/03/24 23:32 2 mg ONCE ONE Administration Ondansetron HCl 4 mg 05/03/24 23:31 05/04/24 00:31 Ondansetron Hcl 4 Mg/2 Ml Vial IVPUSH 05/03/24 23:32 4 mg ONCE ONE Administration Procedures Abscess I/D Site: other (Left peritonsillar) Side (if applicable): left Sedation/analgesia: midazolam Local Anesthetic: lidocaine 1% Amount of anesthesia used (mL): 5 Technique: needle aspiration Amount of fluid expressed (mL): 2 Sent for culture/gram staining?: No Irrigation: No Packing used?: none Medical Decision Making Medical Decision Making [facility] Narrative: 24-year-old female presents with sore throat x3 days. Patient states it is difficult for her to fully open her mouth, associated odynophagia. No known fevers at home. 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 We will be obtaining imaging, screening labs completed including a strep screen which was positive. We will be giving IV fluid, clindamycin and Decadron. I plan to I and D at bedside. I have independently reviewed the following tests: Labs: Leukocytosis with left shift, no electrolyte abnormality, not , viral panel negative, strep positive CT neck:Findings: The visualized intracranial contents are unremarkable. The examination demonstrates a left peritonsillar abscess measuring approximately 1.9 x 1.2 x are proximally 1.5 cm. There is mass effect upon the left side of the nasopharynx. There is bilateral tonsillar hypertrophy. Salivary glands are within normal limits. No sialoliths. No suspicious thyroid nodules. Visualized lung apices are clear. No acute fractures. IMPRESSION: Left peritonsillar abscess as above. This document has been electronically signed by: Phuc Laura MD on 05/03/2024 23:11:13 Lab Data 05/03/24 16:58 05/03/24 16:58 Labs: Lab Results 05/03/24 05/03/24 Range/Units 16:58 21:10 WBC 14.4 H (4.8-10.8) X10*3/uL RBC 4.03 L (4.20-5.50) X10*6/uL Hgb 11.9 L (12.0-16.0) g/dl Hct 35.3 L (37.0-47.0) % MCV 87.6 (80.0-98.0) fL MCH 29.5 (27.0-33.0) pg MCHC 33.7 (31.0-35.0) g/dl RDW 12.9 (11.0-16.0) % Plt Count 311 (160-400) X10*3/uL MPV 10.4 (9.4-12.3) fL Immature Gran % (Auto) 0.4 (0.0-0.4) % Neut % (Auto) 76.7 H (45-73) % Lymph % (Auto) 14.0 L (20-40) % Floyd % (Auto) 8.1 (2-11) % Eos % (Auto) 0.3 (0-4) % Baso % (Auto) 0.5 (0-2) % Lymph # (Auto) 2.0 (1.2-4.9) X10*3/uL Floyd # (Auto) 1.2 (0.1-1.2) X10*3/uL Eos # (Auto) 0.0 (0.0-0.4) X10*3/uL Baso # (Auto) 0.1 (0.0-0.2) X10*3/uL Abs Immat Gran (auto) 0.06 H (0.00-0.03) X10*3/uL Absolute Neuts (auto) 11.1 H (2.0-8.3) x10*3/uL Absolute Nucleated RBC 0.000 (0.0-0.012) X10*3/uL Nucleated RBC % (auto) 0.0 (0.0-0.2) /100WBC Sodium 139 (135-145) mmol/L Potassium 3.4 (3.3-5.1) mmol/L Chloride 106 (96-108) mmol/L Carbon Dioxide 23 (22-29) mmol/L Anion Gap 13 (12-20) BUN 11 (9-16) mg/dL Creatinine 0.69 (0.5-1.4) mg/dL Estim Creat Clear Calc 103.0 Estimated GFR > 60 Random Glucose 78 (60-115) mg/dL Lactic Acid 0.5 (0.5-2.0) mmol/L Calcium 9.6 (8.4-10.2) mg/dL Beta HCG, Quant < 2 mIU/mL Influenza Type A (PCR) NEGATIVE (Negative) Influenza Type B (PCR) NEGATIVE (Negative) RSV RNA Qual (PCR) NEGATIVE (Negative) SARS-CoV-2 RNA (RT-PCR) NEGATIVE (Negative) S. pyogenes GrpA RAJ Positive A (Negative) Discharge Plan Discharge Clinical Impression: Abscess, peritonsillar Patient Disposition: Home, Self-Care Instructions: Peritonsillar Abscess (ED) Additional Instructions: You are being treated for strep throat and URI peritonsillar abscess. See home care instructions. You can use warm saltwater gargles to help alleviate your discomfort, you were given a 1 time dose of steroid to help reduce the swelling of your tonsils. Take the Augmentin as directed this is an antibiotic. Make sure to complete the entire course of antibiotics. You do not require any medication until tomorrow morning. Follow up with your primary care provider for a recheck next week. Prescriptions: New amoxicillin-pot clavulanate 875-125 mg tablet 1 tab PO BID Qty: 20 0RF No Action metronidazole 0.75 % (37.5mg/5 gram) gel 1 appful vaginal BEDTIME 5 Days Qty: 70 0RF penicillin V potassium 500 mg tablet 500 mg PO BID 10 Days Qty: 20 0RF prednisone 20 mg tablet 40 mg PO DAILY 5 Days Qty: 10 0RF Cepacol Sore Throat (shanna-men) 15-2.6 mg lozenge 1 michael mucous membrane Q2-4H PRN (Reason: sore throat) Qty: 16 0RF cyclobenzaprine 10 mg tablet 10 mg PO TID PRN (Reason: muscle spasm) Qty: 20 0RF lidocaine 5 % adhesive patch,medicated 1 patch topical DAILY Qty: 30 0RF Rx Instructions: leave on most painful area for up to 12 hrs medroxyprogesterone 150 mg/mL suspension 150 mg IM Q12W 84 Days Qty: 1 5RF Rx Instructions: Restart the Depo with next menses Stand Alone Forms: Work/School Release Print Language: Austrian
[2024-05-03 17:02] LABS: MANUAL DIFF FLAG NO
[2024-05-03 17:08] LABS: Basophils Absolute Auto 0.1 X10*3/uL (0.0-0.2); Basophils Percent Auto 0.5 % (0-2); Eosinophils Percent Auto 0.3 % (0-4); Hematocrit 35.3 % (37.0-47.0); Hemoglobin 11.9 g/dl (12.0-16.0); Imm Gran Abs Auto 0.06 X10*3/uL (0.00-0.03); Imm Gran Pct Auto 0.4 % (0.0-0.4); Mean Corpuscular HGB Conc 33.7 g/dl (31.0-35.0); Mean Corpuscular Hemoglobin 29.5 pg (27.0-33.0); Mean Corpuscular Volume 87.6 fL (80.0-98.0); Mean Platelet Volume 10.4 fL (9.4-12.3); Monocytes Absolute Auto 1.2 X10*3/uL (0.1-1.2); Monocytes Percent Auto 8.1 % (2-11); Neutrophils Absolute Auto 11.1 x10*3/uL (2.0-8.3); Neutrophils Percent Auto 76.7 % (45-73); Platelet Count 311 X10*3/uL (160-400); Red Blood Count 4.03 X10*6/uL (4.20-5.50); Red Cell Distribution Width 12.9 % (11.0-16.0); White Blood Count 14.4 X10*3/uL (4.8-10.8)
[2024-05-03 17:11] LABS: IDNOW Serial# 08D9AD1C; Strep A Nucleic Acid Positive (Negative)
[2024-05-03 17:26] LABS: Anion Gap 13 (12-20); Blood Urea Nitrogen 11 mg/dL (9-16); Calcium 9.6 mg/dL (8.4-10.2); Carbon Dioxide 23 mmol/L (22-29); Chloride 106 mmol/L (96-108); Estimated Glomerular Filt Rate > 60; Glucose Random 78 mg/dL (60-115); Potassium 3.4 mmol/L (3.3-5.1); Sodium 139 mmol/L (135-145)
[2024-05-03 17:33] LABS: HCG Quantitative < 2 mIU/mL
[2024-05-03 17:45] LABS: Influenza A PCR NEGATIVE (Negative); Influenza B PCR NEGATIVE (Negative); Resp Syncy Virus RNA Qual PCR NEGATIVE (Negative); SARS COV2 PCR INHOUSE NEGATIVE (Negative)
[2024-05-03 21:31] LABS: Lactic Acid 0.5 mmol/L (0.5-2.0)
[2024-05-03] MEDS: iohexoL 350 MG/ML 100 ML INFUS..BTL 60 ML IV (22:36)
[2024-05-03] MEDS: 0.9 % Sodium Chloride 1,000 ML 999 ML IV (22:40)
[2024-05-03] MEDS: Clindamycin Phosphate/D5W 600 MG/50 ML PIGGYBACK 100 MG IV (22:40)
[2024-05-03] MEDS: dexAMETHasone sod phosphate 10 MG/ML VIAL IVPUSH (22:41)
[2024-05-03 23:47] VITALS: O2SAT 99
[2024-05-04] MEDS: Lidocaine HCl Viscous 2 % 15 ML SOLUTION MUCOUS MEM (00:29)
[2024-05-04] MEDS: Magnesium Hydrox/Alum Hydrox 30 ML ORAL.SUSP PO (00:29)
[2024-05-04] MEDS: Midazolam HCl 2 MG/2 ML VIAL IVPUSH (00:31)
[2024-05-04] MEDS: ondansetron HCL 4 MG/2 ML VIAL IVPUSH (00:31)
[2024-05-04] MEDS: Lidocaine HCl 1%/Epi 1:100,000 10 ML VIAL INFILTRATI (00:31)
[2024-05-04 00:43] VITALS: BP 126/76; PULSE 94; RESP 18; O2SAT 98
[2024-05-04 01:16] VITALS: BP 132/78; PULSE 76; RESP 18; TEMP 37.2; O2SAT 99
== END 2024-05-04 01:18 | disposition home or self-care (01) ==
PROVIDERS: Physician Assistant; Physician Assistant Medical; Emergency Provider Internal Medicine
DX: J02.0 Streptococcal pharyngitis (principal); J36 Peritonsillar abscess; F12.90 Cannabis use, unspecified, uncomplicated; Z03.818 Encounter for observation for suspected exposure to other biological agents ruled out
CPT/HCPCS: 0241U; 10160; 36415; 70491; 80048; 83605; 84702; 85025; 87040; 87651; 96374; 96375; 99285; J0736; J1100; J2004; J2250; J2405; Q9967

== ENCOUNTER → 2024-05-03 21:07 | Outpatient (BNV) | payer OTHER, SELFPAY | PROVIDERS: Emergency Provider Internal Medicine; Visit Provider Radiology Diagnostic Radiology | DX: J36 Peritonsillar abscess (principal); J35.1 Hypertrophy of tonsils | CPT/HCPCS: 70491 ==